=== PATIENT | male | born 1960 | race Caucasian/White ===

== ENCOUNTER 2017-01-27 11:14 | Emergency (ER) | payer OTHER ==
[~2017-01-27] VITALS: Ht 172.7 cm; Wt 94.4 kg
[2017-01-27 14:00] LABS: BASO # 0.1 10^3/uL (0.0-0.2); BASO % 0.6 % (0.0-1.0); EOS # 0.2 10^3/uL (0.0-0.50); EOS % 2.3 % (0.0-3.0); IMMATURE GRANULOCYTE % 0.7 % (0-0); LYMPH # 1.7 10^3/uL (1.5-4.5); LYMPH % 18.6 % (24.0-44.0); MEAN CORPUSCULAR HEMOGLOBIN 31.3 pg (27.0-33.0); MEAN CORPUSCULAR HGB CONC 33.1 g/dl (32.0-36.5); MEAN CORPUSCULAR VOLUME 94.6 fl (80.0-96.0); MONO % 10.7 % (0.0-5.0); NEUTROPHILS % 67.1 % (36.0-66.0); PLATELET COUNT, AUTOMATED 258 10^3/uL (150-450); RED CELL DISTRIBUTION WIDTH 14.1 % (11.5-14.5); WHITE BLOOD COUNT 8.9 10^3/uL (4.0-10.0)
--- NOTE | 2017-01-27 14:27 | REP ---
Chest two views HISTORY: pedal edema Comparison: None The lungs are clear. The heart is normal in size. The pulmonary vasculature is normal in appearance. The bony structure is intact. IMPRESSION: No acute disease. Signed by Nilton Adler MD 01/27/2017 02:18 P
[2017-01-27 14:28] LABS: ALBUMIN 3.7 GM/DL (3.2-5.2); ALBUMIN/GLOBULIN RATIO 0.97 (1.00-1.93); ALKALINE PHOSPHATASE 90 U/L (45-117); ALT/SGPT 30 U/L (12-78); ANION GAP 6 MEQ/L (8-16); AST/SGOT 11 U/L (7-37); BILIRUBIN,TOTAL 0.2 MG/DL (0.2-1.0); BLOOD UREA NITROGEN 26 MG/DL (7-18); CALCIUM LEVEL 9.3 MG/DL (8.5-10.1); CARBON DIOXIDE LEVEL 27 MEQ/L (21-32); CHLORIDE LEVEL 107 MEQ/L (98-107); CREATININE FOR GFR 1.11 MG/DL (0.70-1.30); GLOMERULAR FILTRATION RATE > 60.0 (>56); GLUCOSE, FASTING 101 MG/DL (70-105); POTASSIUM SERUM 4.5 MEQ/L (3.5-5.1); SODIUM LEVEL 140 MEQ/L (136-145); TOTAL PROTEIN 7.5 GM/DL (6.4-8.2)
[2017-01-27] MEDS ORDERED: HYDR25TAB PO (15:29)
[2017-01-27] MEDS ORDERED: KEFL500C17 PO (15:30)
[2017-01-27 15:41] VITALS: BP 157/91
--- NOTE | 2017-01-28 08:09 | ECGEPIP ---
Stationary ECG Study [facility] - ED Test Date: 2017-01-27 Pat Name: ARMOND MAGANA Department: Room: - Gender: M Financial Sales Professional: usha : 1960 Requested By: Brenda Thomas Order Number: [id number] Reading MD: Kimber Arias Measurements Intervals [place] Rate: 91 P: 68 LA: 126 QRS: 63 QRSD: 85 T: 73 QT: 325 QTc: 401 Interpretive Statements SINUS RHYTHM NSTTW ABNORMALITY NO PRIOR FOR COMPARISON Electronically Signed On 01-28-2017 8:09:21 EST by Kimber Arias
== END 2017-01-27 15:45 | disposition home or self-care (01) ==
LOC: M ED 11:14
DX: R60.0 Localized edema (principal); R06.02 Shortness of breath; I10 Essential (primary) hypertension; Z72.0 Tobacco use

== ENCOUNTER → 2017-02-26 | Outpatient (REF) | payer OTHER, MEDICAID ==
[2017-02-26 14:07] LABS: ALBUMIN 3.9 GM/DL (3.2-5.2); ALBUMIN/GLOBULIN RATIO 1.22 (1.00-1.93); ALKALINE PHOSPHATASE 105 U/L (45-117); ALT/SGPT 26 U/L (12-78); ANION GAP 6 MEQ/L (8-16); AST/SGOT 15 U/L (7-37); BILIRUBIN,TOTAL 0.2 MG/DL (0.2-1.0); BLOOD UREA NITROGEN 21 MG/DL (7-18); CALCIUM LEVEL 8.7 MG/DL (8.5-10.1); CARBON DIOXIDE LEVEL 30 MEQ/L (21-32); CHLORIDE LEVEL 101 MEQ/L (98-107); CREATININE FOR GFR 1.11 MG/DL (0.70-1.30); GLOMERULAR FILTRATION RATE > 60.0 (>56); GLUCOSE, FASTING 132 MG/DL (70-105); POTASSIUM SERUM 4.5 MEQ/L (3.5-5.1); SODIUM LEVEL 137 MEQ/L (136-145); TOTAL PROTEIN 7.1 GM/DL (6.4-8.2)
== END ==
LOC: M LAB REF 13:09
DX: R06.02 Shortness of breath (principal); R60.0 Localized edema; I10 Essential (primary) hypertension
CPT/HCPCS: 83880

== ENCOUNTER → 2017-05-14 | Outpatient (REF) | payer OTHER, MEDICAID ==
[2017-05-14 19:16] LABS: ALBUMIN 3.8 GM/DL (3.2-5.2); ALBUMIN/GLOBULIN RATIO 1.27 (1.00-1.93); ALKALINE PHOSPHATASE 116 U/L (45-117); ALT/SGPT 33 U/L (12-78); ANION GAP 10 MEQ/L (8-16); AST/SGOT 17 U/L (7-37); BILIRUBIN,TOTAL 0.2 MG/DL (0.2-1.0); BLOOD UREA NITROGEN 35 MG/DL (7-18); CARBON DIOXIDE LEVEL 27 MEQ/L (21-32); CHLORIDE LEVEL 99 MEQ/L (98-107); GLOMERULAR FILTRATION RATE > 60.0 (>56); GLUCOSE, FASTING 181 MG/DL (70-100); POTASSIUM SERUM 3.7 MEQ/L (3.5-5.1); SODIUM LEVEL 136 MEQ/L (136-145); TOTAL PROTEIN 6.8 GM/DL (6.4-8.2)
== END ==
LOC: M LAB REF 17:34
DX: I10 Essential (primary) hypertension (principal)

== ENCOUNTER → 2017-09-30 | Outpatient (CLI) | payer OTHER | LOC: M CARPUL 10:07 | DX: R06.02 Shortness of breath (principal) | CPT/HCPCS: 94060 ==

== ENCOUNTER → 2018-01-29 | Outpatient (CLI) | payer OTHER | LOC: M SLEEP HO 11:19 | DX: G47.30 Sleep apnea, unspecified (principal) | CPT/HCPCS: G0399 ==

== ENCOUNTER → 2018-03-23 | Outpatient (CLI) | payer OTHER ==
[~2018-03-23] MED LIST: HYDR25TAB PO; KEFL500C17 PO
--- NOTE | 2018-04-16 17:48 | SLEEPCENT ---
DATE OF PROCEDURE: 03/23/2018 REFERRING PROVIDER: Ms. Deisy Carey INTERPRETATION: Nocturnal polysomnography was performed for the determination of pressure therapy in this patient with a home sleep test that was suggestive of at least mild obstructive sleep apnea with an respiratory event index (AUSTIN) of 12.3. He also had oxygen desaturations with a willie of 70%. Of the events, there were obstructive but also central apneas. Finally, there was a time period when the oximetry was not recording, so no hypopneas could be scored and his index is likely higher. Symptoms included excessive daytime sleepiness, insomnia, snoring, gasping respirations, nonrestorative sleep. A total of 6 hours and 35 minutes of data was reviewed for the entire titration with 294.5 minutes of sleep identified. Sleep latency was 14 minutes. Rapid eye movement (REM) latency was 72 minutes. No slow wave sleep was identified. Sleep efficiency was 75.8%. EKG showed normal sinus rhythm with an average heart rate of 76 beats per minute. Speeding and slowing was noted surrounding some respiratory events. No epileptiform discharge observed. The patient had been fit with a ResMed AirFit F20 full face mask of medium size, 4 cm of water pressure supplied to the circuit and the lights were dimmed. Continuous positive airway pressure (CPAP) begun at 4 cm of water pressure was taken to a high of 13 cm of water pressure. However, he appeared to do best on 10 cm of water pressure. On this pressure, his apnea-hypopnea index (AHI) was 0, as was his respiratory arousal index (GILL). Oxygen saturation willie was in the high 80s. Periodic limb movement index was 16.7. Supine REM sleep was seen on this pressure with a reasonably good wave form. IMPRESSION: 1. Obstructive sleep apnea, at least mild, reasonably palliated on CPAP at 10 cm of water pressure including supine REM sleep. 2. Periodic limb movements, mild. RECOMMENDATIONS: Recommend continuation of CPAP therapy at the above pressure via a medium ResMed AirFit F20 full face mask or mask of his preference. After the patient is tolerating CPAP, I recommend overnight oximetry to ensure eradication of nocturnal hypoxemia. MTDD
== END ==
LOC: M SLEEP 19:09
PROVIDERS: ATTEND Internal Medicine Pulmonary Disease
DX: G47.33 Obstructive sleep apnea (adult) (pediatric) (principal)

== ENCOUNTER → 2018-05-10 | Outpatient (REF) | payer OTHER ==
[2018-05-10 13:36] LABS: BASO # 0.1 10^3/uL (0.0-0.2); BASO % 0.9 % (0.0-1.0); EOS # 0.2 10^3/uL (0.0-0.50); HEMATOCRIT 47.5 % (42.0-52.0); HEMOGLOBIN 15.8 g/dl (13.5-17.5); LYMPH # 1.4 10^3/uL (1.5-4.5); LYMPH % 17.5 % (24.0-44.0); MEAN CORPUSCULAR HEMOGLOBIN 30.9 pg (27.0-33.0); MEAN CORPUSCULAR HGB CONC 33.3 g/dl (32.0-36.5); MONO # 0.7 10^3/uL (0.0-0.8); MONO % 8.2 % (0.0-5.0); NEUTROPHILS # 5.7 10^3/uL (1.8-7.7); NEUTROPHILS % 70.8 % (36.0-66.0); PLATELET COUNT, AUTOMATED 179 10^3/uL (150-450); RED BLOOD COUNT 5.11 10^6/uL (4.30-6.10)
[2018-05-10 15:18] LABS: ALBUMIN 3.8 GM/DL (3.2-5.2); ALT/SGPT 30 U/L (12-78); BILIRUBIN,TOTAL 0.4 MG/DL (0.2-1.0); BLOOD UREA NITROGEN 18 MG/DL (7-18); CALCIUM LEVEL 8.4 MG/DL (8.5-10.1); CARBON DIOXIDE LEVEL 23 MEQ/L (21-32); CHLORIDE LEVEL 107 MEQ/L (98-107); CHOLESTEROL LEVEL 184 MG/DL (<200); CHOLESTEROL RISK RATIO 5.111 (<5); CREATININE FOR GFR 1.12 MG/DL (0.70-1.30); GLOMERULAR FILTRATION RATE > 60.0 (>56); GLUCOSE, FASTING 123 MG/DL (70-100); HDL CHOLESTEROL 36 MG/DL (>40); LDL CHOLESTEROL 122 MG/DL (<100); NON-HDL-C 148 MG/DL; POTASSIUM SERUM 4.5 MEQ/L (3.5-5.1); SODIUM LEVEL 139 MEQ/L (136-145); TOTAL 25(OH) VITAMIN D 8.7 NG/ML (30.0-100.0); TOTAL PROTEIN 6.9 GM/DL (6.4-8.2); TRIGLYCERIDES LEVEL 129 MG/DL (<150)
[2018-05-10 15:45] LABS: HEMOGLOBIN A1c 6.1 %
== END ==
LOC: M LAB REF 12:36
PROVIDERS: ATTEND Nurse Practitioner Adult Health
DX: Z13.9 Encounter for screening, unspecified (principal)

== ENCOUNTER → 2018-08-17 | Outpatient (REF) | payer OTHER ==
[2018-08-17 20:11] LABS: ALBUMIN 3.5 GM/DL (3.2-5.2); ALT/SGPT 39 U/L (12-78); BILIRUBIN,TOTAL 0.3 MG/DL (0.2-1.0); BLOOD UREA NITROGEN 21 MG/DL (7-18); CALCIUM LEVEL 8.9 MG/DL (8.5-10.1); CARBON DIOXIDE LEVEL 26 MEQ/L (21-32); CHLORIDE LEVEL 103 MEQ/L (98-107); CREATININE FOR GFR 0.96 MG/DL (0.70-1.30); GLOMERULAR FILTRATION RATE > 60.0 (>56); GLUCOSE, FASTING 142 MG/DL (70-100); NT-PRO BNP 21 PG/ML (<125); POTASSIUM SERUM 4.4 MEQ/L (3.5-5.1); SODIUM LEVEL 136 MEQ/L (136-145); TOTAL PROTEIN 6.9 GM/DL (6.4-8.2)
[2018-08-17 20:20] LABS: HEMOGLOBIN A1c 6.5 %
== END ==
LOC: M LAB REF 19:04
PROVIDERS: ATTEND Nurse Practitioner Adult Health
DX: R73.03 Prediabetes (principal); E78.5 Hyperlipidemia, unspecified; R06.02 Shortness of breath; I10 Essential (primary) hypertension

== ENCOUNTER → 2018-08-23 | Outpatient (CLI) | payer OTHER ==
--- NOTE | 2018-08-24 09:24 | ECHO ---
DATE OF PROCEDURE: 08/23/2018 REFERRING PHYSICIAN: Deisy Carey NP INDICATION: Dyspnea. HEIGHT: 172 cm WEIGHT: 99 kg. 2D MEASUREMENTS: Ventricular septum - 1.01 cm Posterior wall - 0.92 cm Left ventricle diastole - 4.9 cm Left atrium - 3.4 cm Aortic root - 2.9 cm Left atrial volume index - 14 Inferior vena cava - 2.2 cm DOPPLER MEASUREMENTS: Aortic valve velocity - 165 cm/s LVOT velocity 117 cm/s LVOT VTI - 22.0 cm Mitral E velocity 87. 3 cm/s Mitral A velocity 60.1 cm/s Trace tricuspid regurgitation Pulmonary artery systolic pressure 49 mmHg. MITRAL ANNULAR TISSUE DOPPLER: E prime lateral 4.4 cm/s E prime septal 9.8 cm/s CONCLUSIONS: 1. Moderate elevation of the pulmonary artery systolic pressure. Right ventricle hypertrophy with normal RV systolic function. 2. Normal left ventricle internal dimensions and wall thickness. Normal regional LV wall motion and wall thickening. Normal LV diastolic function. LVEF 65% by visual estimate. Normal left atrial size. 3. Inferior vena cava plethora suggestive of elevated central venous pressure. 4. Moderately technical difficult echocardiogram.
== END ==
LOC: M CARPUL 10:15
PROVIDERS: ATTEND Nurse Practitioner Adult Health
DX: R03.0 Elevated blood-pressure reading, without diagnosis of hypertension (principal)

== ENCOUNTER → 2018-10-09 | Outpatient (CLI) | payer OTHER ==
--- NOTE | 2018-10-11 19:22 | REP ---
MRI LUMBAR SPINE WITHOUT CONTRAST: REASON: Other spondylosis, lumbar region. COMPARISON: None. TECHNIQUE: MRI of the lumbar spine was performed utilizing axial T1 and T2 and saggital STIR, T1 and T2 weighted images without contrast. FINDINGS: There is straightening of lumbar lordosis which could be positional or related to muscle spasm. Vertebral body heights are maintained. There is loss of disc height at L4-L5 with disc desiccation and vacuum phenomenon. There is minimal disc desiccation at L3-L4. There is essentially single level degenerative changes at L4-L5 which include fatty and edematous endplate marrow changes and right greater than left facet arthropathy. The visualized spinal cord is unremarkable. The conus medullaris terminates at L1-L2. The paraspinal muscles are within normal limits. LEVEL SPECIFIC OBSERVATIONS: L1-L2, L2-L3: No significant spinal canal stenosis or neural foraminal narrowing. L3-L4: Minimal disc bulge without spinal canal stenosis or neural foraminal narrowing. L4-L5: Diffuse disc bulge, eccentric to the right. Bilateral facet arthropathy, moderate on the right. Right neural foraminal narrowing, at least moderate. Partial effacement of the ventral thecal sac. No significant spinal canal stenosis. L5-S1: No significant spinal canal stenosis or neural foraminal narrowing. IMPRESSION: 1. L4-L5 lumbar spondylosis with moderate right neural foraminal narrowing. No significant spinal canal stenosis. 2. Remaining lumbar levels are without significant spinal canal stenosis or neural foraminal compromise. Electronically Signed by Gregorio Morrissey MD 10/13/2018 08:40 A
== END ==
LOC: M RAD 09:29
PROVIDERS: ATTEND Orthopaedic Surgery
DX: M43.06 Spondylolysis, lumbar region (principal)

== ENCOUNTER → 2018-10-12 | Outpatient (CLI) | payer OTHER ==
--- NOTE | 2018-10-12 16:00 | REP ---
REASON: Tobacco abuse. PRIORS: None. As per the protocol only lung window images were sent to the read station for interpretation. Numerable pleural blebs are seen in the lung apical regions right greater than left. There are no abnormal nodules, masses, or opacities. Limited evaluation of the mediastinum and pulmonary blu show no gross abnormalities. Limited evaluation of the imaged upper and imaged osseous structures show no gross abnormalities. IMPRESSION: Lung-RADS category 1. No abnormal nodule. Emphysematous changes as described above. Electronically Signed by Jose Funk DO 10/12/2018 05:10 P
== END ==
LOC: M RAD 10:16
PROVIDERS: ATTEND Internal Medicine Pulmonary Disease
DX: Z12.2 Encounter for screening for malignant neoplasm of respiratory organs (principal); Z87.891 Personal history of nicotine dependence

== ENCOUNTER → 2018-11-16 | Outpatient (REF) | payer OTHER ==
[2018-11-16 14:43] LABS: ALBUMIN 3.7 GM/DL (3.2-5.2); ALT/SGPT 39 U/L (12-78); BILIRUBIN,TOTAL 0.4 MG/DL (0.2-1.0); BLOOD UREA NITROGEN 23 MG/DL (7-18); CALCIUM LEVEL 9.6 MG/DL (8.5-10.1); CARBON DIOXIDE LEVEL 26 MEQ/L (21-32); CHLORIDE LEVEL 105 MEQ/L (98-107); CREATININE FOR GFR 1.02 MG/DL (0.70-1.30); GLOMERULAR FILTRATION RATE > 60.0 (>56); GLUCOSE, FASTING 107 MG/DL (70-100); POTASSIUM SERUM 4.5 MEQ/L (3.5-5.1); SODIUM LEVEL 139 MEQ/L (136-145); TOTAL PROTEIN 6.9 GM/DL (6.4-8.2)
[2018-11-16 14:57] LABS: HEMOGLOBIN A1c 6.6 %
== END ==
LOC: M LAB REF 14:14
PROVIDERS: ATTEND Nurse Practitioner Adult Health
DX: Z13.9 Encounter for screening, unspecified (principal); R73.03 Prediabetes

== ENCOUNTER → 2019-02-14 | Outpatient (REF) | payer OTHER ==
[2019-02-14 20:14] LABS: HEMOGLOBIN A1c 6.9 %
== END ==
LOC: M LAB REF 18:54
PROVIDERS: ATTEND Nurse Practitioner Adult Health
DX: E11.9 Type 2 diabetes mellitus without complications (principal)

== ENCOUNTER → 2019-05-18 | Outpatient (REF) | payer OTHER ==
[2019-05-18 17:03] LABS: BASO # 0.1 10^3/uL (0.0-0.2); BASO % 0.7 % (0.0-1.0); EOS # 0.3 10^3/uL (0.0-0.5); EOS % 2.9 % (0.0-3.0); HEMATOCRIT 51.1 % (42.0-52.0); HEMOGLOBIN 16.6 g/dl (13.5-17.5); LYMPH # 2.6 10^3/uL (1.5-5.0); LYMPH % 26.9 % (24.0-44.0); MEAN CORPUSCULAR HEMOGLOBIN 31.1 pg (27.0-33.0); MEAN CORPUSCULAR HGB CONC 32.5 g/dl (32.0-36.5); MEAN CORPUSCULAR VOLUME 95.7 fl (80.0-96.0); MONO # 0.7 10^3/uL (0.0-0.8); MONO % 7.1 % (0.0-5.0); NEUTROPHILS # 5.8 10^3/uL (1.5-8.5); NEUTROPHILS % 61.1 % (36.0-66.0); PLATELET COUNT, AUTOMATED 219 10^3/uL (150-450); RED BLOOD COUNT 5.34 10^6/uL (4.30-6.10); WHITE BLOOD COUNT 9.5 10^3/uL (4.0-10.0)
[2019-05-18 17:11] LABS: ALT/SGPT 48 U/L (12-78); BILIRUBIN,TOTAL 0.2 MG/DL (0.2-1.0); BLOOD UREA NITROGEN 19 MG/DL (7-18); CALCIUM LEVEL 9.4 MG/DL (8.5-10.1); CARBON DIOXIDE LEVEL 30 MEQ/L (21-32); CHLORIDE LEVEL 103 MEQ/L (98-107); CREATININE FOR GFR 0.95 MG/DL (0.70-1.30); GLOMERULAR FILTRATION RATE > 60.0 (>56); GLUCOSE, FASTING 95 MG/DL (70-100); POTASSIUM SERUM 4.5 MEQ/L (3.5-5.1); SODIUM LEVEL 137 MEQ/L (136-145); TOTAL PROTEIN 7.3 GM/DL (6.4-8.2)
[2019-05-18 17:12] LABS: HEMOGLOBIN A1c 6.7 %
== END ==
LOC: M LAB REF 16:21
PROVIDERS: ATTEND Nurse Practitioner Adult Health
DX: Z13.9 Encounter for screening, unspecified (principal)

== ENCOUNTER → 2019-08-17 | Outpatient (CLI) | payer OTHER ==
[~2019-08-17] MED LIST changes: +HYDR-3490 PO; -HYDR25TAB PO
--- NOTE | 2019-08-17 16:17 | REP ---
DEEP VENOUS ULTRASONOGRAPHY RIGHT THIGH, RULE OUT DVT: REASON: Pain and swelling. TECHNIQUE: Multiple ultrasonographic images of the deep venous structures of the right thigh were obtained from the common femoral vein to the popliteal vein along with Doppler interrogation and color flow Doppler images. FINDINGS: There is no abnormal echogenic material seen within any of the visualized deep venous structures that would suggest acute thrombosis. Coaptation is unremarkable throughout. Doppler interrogation shows an expected response to respiratory variability and augmentation. The color flow images show what appears to be a normal vascular pattern throughout. IMPRESSION: There is no ultrasonographic evidence of deep venous thrombosis involving any of the visualized deep venous structures of the right thigh, as described above.
== END ==
LOC: M WHC 14:40
PROVIDERS: ATTEND Nurse Practitioner Adult Health
DX: R60.0 Localized edema (principal)

== ENCOUNTER → 2019-08-17 | Outpatient (REF) | payer OTHER, MEDICAID ==
[~2019-08-17] MED LIST changes: -HYDR-3490 PO; +HYDR25TAB PO
[2019-08-17 15:20] LABS: HEMOGLOBIN A1c 7.1 %
[2019-08-17 15:28] LABS: ALBUMIN 3.8 GM/DL (3.2-5.2); ALT/SGPT 45 U/L (12-78); BILIRUBIN,TOTAL 0.2 MG/DL (0.2-1.0); BLOOD UREA NITROGEN 22 MG/DL (7-18); CALCIUM LEVEL 9.1 MG/DL (8.5-10.1); CARBON DIOXIDE LEVEL 27 MEQ/L (21-32); CHLORIDE LEVEL 106 MEQ/L (98-107); CREATININE FOR GFR 0.99 MG/DL (0.70-1.30); GLOMERULAR FILTRATION RATE > 60.0 (>56); GLUCOSE, FASTING 96 MG/DL (70-100); POTASSIUM SERUM 4.5 MEQ/L (3.5-5.1); SODIUM LEVEL 138 MEQ/L (136-145); TOTAL PROTEIN 7.1 GM/DL (6.4-8.2)
== END ==
LOC: M LAB REF 14:37
PROVIDERS: ATTEND Nurse Practitioner Adult Health
DX: R60.0 Localized edema (principal)

== ENCOUNTER → 2019-12-02 | Outpatient (CLI) | payer OTHER ==
--- NOTE | 2019-12-12 16:53 | REP ---
CT CHEST WITHOUT CONTRAST: LOW DOSE SCREENING EXAMIN HISTORY: Personal history of nicotine dependence. COMPARISON: CT chest screening study 10/12/2018. 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 There are emphysematous and bullous changes in the apices bilaterally unchanged. No infiltrate or lung mass lesion has developed. No significant pulmonary nodule is appreciated. Mild vascular calcification is again seen. IMPRESSION: Lung-RADS Category 1 stable findings. Repeat screening exam suggested in one year. MTDD
== END ==
LOC: M RAD 13:30
PROVIDERS: ATTEND Nurse Practitioner Family
DX: Z12.2 Encounter for screening for malignant neoplasm of respiratory organs (principal); Z87.891 Personal history of nicotine dependence

== ENCOUNTER → 2020-04-04 | Outpatient (REF) | payer OTHER ==
[~2020-04-04] MED LIST changes: +HYDR-3490 PO; -HYDR25TAB PO
[2020-04-04 18:14] LABS: CHOLESTEROL RISK RATIO 5.358 (<5)
[2020-04-04 20:10] LABS: HEMOGLOBIN A1c 6.4 %
== END ==
LOC: M LAB REF 17:24
PROVIDERS: ATTEND Nurse Practitioner Adult Health
DX: E11.9 Type 2 diabetes mellitus without complications (principal); E78.5 Hyperlipidemia, unspecified

== ENCOUNTER → 2020-12-19 | Outpatient (CLI) | payer MEDICARE, OTHER ==
--- NOTE | 2020-12-19 15:21 | REP ---
INDICATION: LUNG CANCER SCREENING. COMPARISON: Multiple the latest 12/02/2019 TECHNIQUE: Axial noncontrast images from the thoracic inlet to the upper abdomen using low-dose lung screening technique (LDCT). As per the protocol only lung window images were sent to the read station for interpretation. FINDINGS: There is biapical pleuroparenchymal scarring status quo. There are biapical pleural blebs status quo. No new abnormal nodules, masses, or opacities have developed. Grossly, the mediastinum and pulmonary blu are unchanged. Grossly, the imaged upper abdomen and imaged osseous structures are unchanged. IMPRESSION: No change from the prior exam. No abnormal nodules. Stable appearing chronic lung field changes. Lung rads category 1 <Electronically signed by Jose Funk > 12/19/20 [id number]
== END ==
LOC: M RAD 13:48
PROVIDERS: ATTEND Pediatrics
DX: Z12.2 Encounter for screening for malignant neoplasm of respiratory organs (principal); J98.4 Other disorders of lung; J43.9 Emphysema, unspecified

== ENCOUNTER → 2021-04-17 | Outpatient (CLI) | payer OTHER | LOC: M RAD 17:56 | PROVIDERS: ATTEND Nurse Practitioner Family | DX: R91.8 Other nonspecific abnormal finding of lung field (principal); J43.2 Centrilobular emphysema ==

== ENCOUNTER 2021-07-20 15:00 | Emergency (ER) | payer OTHER ==
[~2021-07-20] VITALS: Ht 165.1 cm; Wt 103.4 kg
[2021-07-20] MEDS ORDERED: LISI20TA33 (15:14)
[2021-07-20] MEDS ORDERED: ALBU8.5H (15:14)
[2021-07-20] MEDS ORDERED: CETI-24 (15:14)
[2021-07-20] MEDS ORDERED: INCR1INH (15:14)
[2021-07-20] MEDS ORDERED: ATOR40TA75 (15:14)
[2021-07-20] MEDS ORDERED: METF500T13 (15:14)
[2021-07-20] MEDS ORDERED: FURO20TA2 (15:14)
[2021-07-20] MEDS ORDERED: MONT10TA97 (15:14)
[2021-07-20] MEDS ORDERED: ALBU83IN (15:14)
[2021-07-20] MEDS ORDERED: ACETAMINOPHEN 325 MG TAB PO ONE (16:20)
[2021-07-20] MEDS ORDERED: methocarbamoL 500 MG TAB PO ONE (17:40)
[2021-07-20] MEDS ORDERED: METH-1164 PO (17:41)
[2021-07-20] MEDS ORDERED: LIDOCAINE 5% (LIDODERM) PATCH TD ONE (17:45)
[2021-07-20 17:49] VITALS: BP 122/74
[2021-07-20] MEDS ORDERED: **NOTE PATIENT COMMENT** MISC XX SCH (21:00)
== END 2021-07-20 17:51 | disposition home or self-care (01) ==
LOC: M ED 15:00
DX: R51.9 Headache, unspecified (principal); M54.2 Cervicalgia; M25.519 Pain in unspecified shoulder; M51.9 Unspecified thoracic, thoracolumbar and lumbosacral intervertebral disc disorder; E11.9 Type 2 diabetes mellitus without complications; I10 Essential (primary) hypertension; J44.9 Chronic obstructive pulmonary disease, unspecified; E78.5 Hyperlipidemia, unspecified; M50.30 Other cervical disc degeneration, unspecified cervical region

== ENCOUNTER → 2021-08-07 | Outpatient (CLI) | payer OTHER ==
[~2021-08-07] MED LIST changes: +ALBU2.5V10; +ALBU8.5H; +ATOR40TA75; +CETI-24; +FURO20TA2; +INCR1INH; +LISI20TA33; +METF500T13; +METH-1164 PO; +MONT10TA97
== END ==
LOC: M CARPUL 10:55
PROVIDERS: ATTEND Pediatrics
DX: I27.20 Pulmonary hypertension, unspecified (principal); I36.1 Nonrheumatic tricuspid (valve) insufficiency; I31.3 Pericardial effusion (noninflammatory)

== ENCOUNTER → 2021-11-05 | Outpatient (CLI) | payer OTHER | LOC: M RAD 13:47 | PROVIDERS: ATTEND Pediatrics | DX: I73.9 Peripheral vascular disease, unspecified (principal) ==

== ENCOUNTER → 2021-12-12 | Outpatient (CLI) | payer OTHER | LOC: M PLARAD 09:06 | PROVIDERS: ATTEND Physician Assistant | DX: S43.491D Other sprain of right shoulder joint, subsequent encounter (principal); M54.12 Radiculopathy, cervical region; M25.78 Osteophyte, vertebrae; M48.02 Spinal stenosis, cervical region ==

== ENCOUNTER → 2022-04-18 | Outpatient (CLI) | payer MEDICARE, OTHER, SELFPAY | LOC: M RAD 14:49 | PROVIDERS: ATTEND Nurse Practitioner Family | DX: Z12.2 Encounter for screening for malignant neoplasm of respiratory organs (principal); Z87.891 Personal history of nicotine dependence; J43.9 Emphysema, unspecified ==

== ENCOUNTER → 2022-05-05 | Outpatient (REF) | payer MEDICARE, OTHER ==
[2022-05-05 17:44] LABS: BLOOD UREA NITROGEN 23 MG/DL (9-23); CALCIUM LEVEL 9.6 MG/DL (8.5-10.1); CARBON DIOXIDE LEVEL 31 MMOL/L (20-31); CHLORIDE LEVEL 101 MMOL/L (98-107); CREATININE FOR GFR 0.88 MG/DL (0.70-1.30); GLOMERULAR FILTRATION RATE > 60.0 (>56); GLUCOSE, FASTING 100 MG/DL (60-100); POTASSIUM SERUM 4.7 MMOL/L (3.5-5.1); SODIUM LEVEL 138 MMOL/L (136-145)
== END ==
LOC: M LAB REF 16:27
PROVIDERS: ATTEND Pediatrics
DX: Z01.818 Encounter for other preprocedural examination (principal)

== ENCOUNTER 2022-05-14 10:39 | Inpatient (IN) | payer MEDICARE, OTHER ==
[~2022-05-14] VITALS: Ht 172.7 cm; Wt 86.9 kg
[2022-05-14] VITALS (16 sets, daily range): BP systolic 118–139; BP diastolic 56–69
[~2022-05-14 10:39] MED LIST changes: -FURO20TA2; +FURO20TA2 PO; -INCR1INH; +INCR1INH INH; -LISI20TA33; +LISI20TA33 PO; -MONT10TA97; +MONT10TA97 PO
[2022-05-14 12:36] LABS: BASO # 0.1 10^3/uL (0.0-0.2); BASO % 0.4 % (0.0-1.0); EOS % 0.2 % (0.0-3.0); HEMATOCRIT 49.2 % (42.0-52.0); HEMOGLOBIN 15.9 g/dl (13.5-17.5); LYMPH # 1.8 10^3/uL (1.5-5.0); LYMPH % 11.2 % (24.0-44.0); MEAN CORPUSCULAR HEMOGLOBIN 30.9 pg (27.0-33.0); MEAN CORPUSCULAR HGB CONC 32.3 g/dl (32.0-36.5); MEAN CORPUSCULAR VOLUME 95.7 fl (80.0-96.0); MONO # 1.5 10^3/uL (0.0-0.8); MONO % 8.9 % (2.0-8.0); NEUTROPHILS # 12.8 10^3/uL (1.5-8.5); NEUTROPHILS % 78.6 % (36.0-66.0); PLATELET COUNT, AUTOMATED 198 10^3/uL (150-450); RED BLOOD COUNT 5.14 10^6/uL (4.30-6.10); WHITE BLOOD COUNT 16.2 10^3/uL (4.0-10.0)
[2022-05-14] MEDS ORDERED: IPRATROPIUM 0.5MG/ALBUTEROL 2.5MG INH SOL UD 3ML (DUONEB) NEB ONE ×2 (12:40→13:30)
[2022-05-14] MEDS ORDERED: AMPICILLIN SOD/SULBACTAM SOD 3 GM in D5W MINI-BAG PLUS 100 ML IV ONE (12:45)
[2022-05-14] MEDS ORDERED: NS 500 ML IV ONE (12:50)
[2022-05-14] MEDS ORDERED: ISOVUE-370 76% 100ML VIAL As Ordered ONE (12:56)
[2022-05-14 13:08] LABS: ABG BASE EXCESS 2.4 (-2.0-2.0); ABG HCO3 27.1 MEQ/L (22.0-26.0); ABG O2 SATURATION 91.9 % (95.0-99.0); ABG PARTIAL PRESSURE CO2 42.1 mmHg (35.0-45.0); ABG PARTIAL PRESSURE O2 57.9 mmHg (75.0-100.0); ABG STANDARD HCO3 26.4 MEQ/L (22.0-26.0); ABG TOTAL CO2 28.4 MEQ/L (22.0-29.0); ABG pH (ARTERIAL) 7.426 UNITS (7.350-7.450)
[2022-05-14 13:27] LABS: ALBUMIN 3.9 G/DL (3.2-5.2); ALKALINE PHOSPHATASE 92 U/L (46-116); ALT/SGPT 34 U/L (7.0-40); AST/SGOT 23 U/L (<34); BILIRUBIN,DIRECT 0.3 MG/DL (<0.4); BILIRUBIN,TOTAL 1.2 MG/DL (0.3-1.2); BLOOD UREA NITROGEN 25 MG/DL (9-23); CALCIUM LEVEL 9.2 MG/DL (8.5-10.1); CARBON DIOXIDE LEVEL 29 MMOL/L (20-31); CHLORIDE LEVEL 98 MMOL/L (98-107); CK-MB VALUE MASS 2.9 NG/ML (<3.6); CREATININE FOR GFR 0.87 MG/DL (0.70-1.30); GLOMERULAR FILTRATION RATE > 60.0 (>56); GLUCOSE, FASTING 149 MG/DL (60-100); POTASSIUM SERUM 4.8 MMOL/L (3.5-5.1); SODIUM LEVEL 134 MMOL/L (136-145); TOTAL PROTEIN 6.8 G/DL (5.7-8.2)
[2022-05-14 13:28] LABS: CPK CREATINE PHOSPHOKINASE 560 U/L (46-171); MB/CK RELATIVE INDEX 0.51 (< OR =4)
[2022-05-14] MEDS ORDERED: NEOSPORIN TOP OINT 15GM As Ordered ONE (13:59)
[2022-05-14] MEDS ORDERED: PHENYLEPHRINE 0.5% NASAL SPRAY 15 ML As Ordered ONE (13:59)
[2022-05-14] MEDS ORDERED: LIDOCAINE W/EPINEPHRINE 1% 20ML VIAL As Ordered ONE (13:59)
[2022-05-14] MEDS ORDERED: LIDOCAINE 1% SDV 30ML VIAL As Ordered ONE (13:59)
[2022-05-14] MEDS ORDERED: METHYLENE BLUE 0.5% (5MG/ML) 10 ML AMP (PROVAYBLUE) As Ordered ONE (13:59)
[2022-05-14] MEDS ORDERED: propofoL 200 MG/20 ML VIAL As Ordered ONE (14:07)
[2022-05-14] MEDS ORDERED: ROCURONIUM BROMIDE 50MG/5ML VIAL As Ordered ONE ×2 (14:07→15:34)
[2022-05-14] MEDS ORDERED: fentaNYL 100 MCG/2 ML INJECTION As Ordered ONE ×3 (14:07→15:37)
[2022-05-14] MEDS ORDERED: ONDANSETRON 4MG 2ML VIAL As Ordered ONE (14:07)
[2022-05-14] MEDS ORDERED: KETAMINE HCL 200MG/20ML VIAL As Ordered ONE (14:07)
[2022-05-14] MEDS ORDERED: LIDOCAINE 2% 100MG/5ML SDV (FOR ANES.) As Ordered ONE (14:07)
[2022-05-14] MEDS ORDERED: MIDAZOLAM INJ 2MG/2ML VIAL As Ordered ONE ×2 (14:07→17:23)
[2022-05-14] MEDS ORDERED: ETOMIDATE INJ 20MG/10ML VIAL As Ordered ONE (14:08)
[2022-05-14 14:10] LABS: RSV AMPLIFICATION NEGATIVE (NEGATIVE)
[2022-05-14] MEDS ORDERED: OXYMETAZOLINE 0.05% NASAL SPRAY (AFRIN) As Ordered ONE (14:20)
[2022-05-14] MEDS ORDERED: CETACAINE SPRAY 5GM As Ordered ONE (14:40)
[2022-05-14] MEDS ORDERED: PHENYLephrine 500MCG 5ML (100MCG/ML) SYRINGE As Ordered ONE (15:12)
[2022-05-14] MEDS ORDERED: SUCCINYLCHOLINE 100MG/5ML SYRINGE As Ordered ONE (15:12)
[2022-05-14] MEDS ORDERED: SUGAMMADEX SODIUM 500 MG/5 ML VIAL (BRIDION) As Ordered ONE (15:16)
[2022-05-14] MEDS ORDERED: ACETAMINOPHEN 1000MG 100ML IV BAG As Ordered ONE (15:26)
[2022-05-14] MEDS ORDERED: PROPOFOL 1,000 MG/100 ML VIAL As Ordered ONE (16:10)
[2022-05-14] MEDS: propofoL 1,000 MG in IV 1 EA IV SCH ×3 (17:03→23:55)
[2022-05-14] MEDS ORDERED: MIDAZOLAM 100MG/100ML-0.9%NACL 100 MG in IV 1 EA IV SCH (17:15)
[2022-05-14] MEDS ORDERED: DEXTROSE 50% 50ML SYRINGE IV PRN (17:25)
[2022-05-14] MEDS ORDERED: GLUCAGON INJ 1MG VIAL SC PRN (17:25)
[2022-05-14] MEDS ORDERED: GLUCOSE 4GM CHEW TABLET PO PRN (17:25)
[2022-05-14] MEDS ORDERED: MIDAZOLAM INJ 2MG/2ML VIAL IV STA (17:26)
[2022-05-14 17:41] LABS: ABG BASE EXCESS -2.2 (-2.0-2.0); ABG HCO3 27.2 MEQ/L (22.0-26.0); ABG O2 SATURATION 96.4 % (95.0-99.0); ABG PARTIAL PRESSURE O2 98.9 mmHg (75.0-100.0); ABG STANDARD HCO3 22.7 MEQ/L (22.0-26.0); ABG TOTAL CO2 29.3 MEQ/L (22.0-29.0)
[2022-05-14] MEDS: INSULIN LISPRO (NovoLOG) PER UNIT SC SCH (17:55)
[2022-05-14] MEDS: PANTOPRAZOLE 40MG VIAL IV SCH (17:56)
[2022-05-14 18:01] LABS: ABG PARTIAL PRESSURE CO2 66.7 mmHg (35.0-45.0); ABG pH (ARTERIAL) 7.229 UNITS (7.350-7.450)
[2022-05-14] MEDS: AMPICILLIN SOD/SULBACTAM SOD 3 GM in D5W MINI-BAG PLUS 100 ML IV SCH (18:31)
[2022-05-14] MEDS: IPRATROPIUM 0.5MG/ALBUTEROL 2.5MG INH SOL UD 3ML (DUONEB) NEB SCH (19:16)
[2022-05-14] MEDS: CHLORHEXIDINE GLUCONATE 0.12 % 15ML UDC (PERIDEX ORAL RINSE) MT SCH (20:05)
[2022-05-14] MEDS: methylPREDNISolone 125MG 2ML VIAL IV SCH (20:06)
[2022-05-14] MEDS: DOXYCYCLINE HYCLATE 100 MG in D5W MINI-BAG PLUS 100 ML IV SCH (20:06)
[2022-05-14] MEDS ORDERED: EZET10TA21 PO (21:17)
[2022-05-14] MEDS ORDERED: FLUT1INH3 INH (21:17)
[2022-05-14] MEDS ORDERED: ATOR80TA59 PO (21:17)
[2022-05-14] MEDS ORDERED: HOME MED LIST COMPLETE! XX SCH ×2 (21:20→21:25)
[2022-05-14] MEDS: fentaNYL 100 MCG/2 ML INJECTION IV PRN (21:56)
[2022-05-15] VITALS (43 sets, daily range): BP systolic 112–147; BP diastolic 55–69
[2022-05-15] MEDS: AMPICILLIN SOD/SULBACTAM SOD 3 GM in D5W MINI-BAG PLUS 100 ML IV SCH ×4 (00:21→18:00)
[2022-05-15] MEDS: INSULIN LISPRO (NovoLOG) PER UNIT SC SCH ×4 (00:28→17:57)
[2022-05-15] MEDS: fentaNYL 100 MCG/2 ML INJECTION IV PRN ×2 (01:16→08:15)
[2022-05-15] MEDS: propofoL 1,000 MG in IV 1 EA IV SCH ×6 (03:59→22:01)
[2022-05-15 04:52] LABS: HEMATOCRIT 45.2 % (42.0-52.0); HEMOGLOBIN 15.2 g/dl (13.5-17.5); MEAN CORPUSCULAR HEMOGLOBIN 31.9 pg (27.0-33.0); MEAN CORPUSCULAR HGB CONC 33.6 g/dl (32.0-36.5); PLATELET COUNT, AUTOMATED 179 10^3/uL (150-450); RED BLOOD COUNT 4.76 10^6/uL (4.30-6.10)
[2022-05-15 05:50] LABS: ABG BASE EXCESS 1.2 (-2.0-2.0); ABG HCO3 25.8 MEQ/L (22.0-26.0); ABG O2 SATURATION 95.7 % (95.0-99.0); ABG PARTIAL PRESSURE CO2 40.8 mmHg (35.0-45.0); ABG STANDARD HCO3 25.5 MEQ/L (22.0-26.0); ABG pH (ARTERIAL) 7.418 UNITS (7.350-7.450)
[2022-05-15] MEDS: methylPREDNISolone 125MG 2ML VIAL IV SCH ×3 (05:50→20:12)
[2022-05-15 05:51] LABS: ALBUMIN 3.1 G/DL (3.2-5.2); ALKALINE PHOSPHATASE 81 U/L (46-116); ALT/SGPT 25 U/L (7.0-40); AST/SGOT 14 U/L (<34); BILIRUBIN,TOTAL 0.6 MG/DL (0.3-1.2); BLOOD UREA NITROGEN 23 MG/DL (9-23); CALCIUM LEVEL 8.7 MG/DL (8.5-10.1); CARBON DIOXIDE LEVEL 28 MMOL/L (20-31); CHLORIDE LEVEL 99 MMOL/L (98-107); CREATININE FOR GFR 0.84 MG/DL (0.70-1.30); GLOMERULAR FILTRATION RATE > 60.0 (>56); GLUCOSE, FASTING 211 MG/DL (60-100); MAGNESIUM LEVEL 1.8 MG/DL (1.8-2.4); POTASSIUM SERUM 4.6 MMOL/L (3.5-5.1); SODIUM LEVEL 135 MMOL/L (136-145)
[2022-05-15] MEDS: IPRATROPIUM 0.5MG/ALBUTEROL 2.5MG INH SOL UD 3ML (DUONEB) NEB SCH ×4 (07:27→20:23)
[2022-05-15] MEDS: DOXYCYCLINE HYCLATE 100 MG in D5W MINI-BAG PLUS 100 ML IV SCH ×2 (07:52→19:19)
[2022-05-15] MEDS: CHLORHEXIDINE GLUCONATE 0.12 % 15ML UDC (PERIDEX ORAL RINSE) MT SCH ×2 (07:52→20:12)
[2022-05-15] MEDS: dexmedeTOMidine 200 MCG in IV 1 EA IV SCH ×5 (09:20→23:07)
[2022-05-15] MEDS ORDERED: ACETAMINOPHEN TAB 650MG DOSE (2X325MG) PO ONE (16:15)
[2022-05-15] MEDS: PANTOPRAZOLE 40MG VIAL IV SCH (17:56)
[2022-05-15] MEDS ORDERED: ACETAMINOPHEN TAB 650MG DOSE (2X325MG) PO PRN (18:25)
[2022-05-16] VITALS (26 sets, daily range): BP systolic 133–162; BP diastolic 62–75
[2022-05-16] MEDS: INSULIN LISPRO (NovoLOG) PER UNIT SC SCH ×5 (00:09→23:45)
[2022-05-16] MEDS: AMPICILLIN SOD/SULBACTAM SOD 3 GM in D5W MINI-BAG PLUS 100 ML IV SCH ×4 (00:09→18:09)
[2022-05-16] MEDS: dexmedeTOMidine 200 MCG in IV 1 EA IV SCH ×10 (00:55→23:56)
[2022-05-16] MEDS: propofoL 1,000 MG in IV 1 EA IV SCH ×7 (01:58→23:57)
[2022-05-16 04:50] LABS: BASO % 0.1 % (0.0-1.0); HEMATOCRIT 45.5 % (42.0-52.0); HEMOGLOBIN 15.1 g/dl (13.5-17.5); LYMPH # 0.7 10^3/uL (1.5-5.0); LYMPH % 4.6 % (24.0-44.0); MEAN CORPUSCULAR HEMOGLOBIN 31.4 pg (27.0-33.0); MEAN CORPUSCULAR HGB CONC 33.2 g/dl (32.0-36.5); MEAN CORPUSCULAR VOLUME 94.6 fl (80.0-96.0); MONO # 1.1 10^3/uL (0.0-0.8); NEUTROPHILS # 13.4 10^3/uL (1.5-8.5); NEUTROPHILS % 87.6 % (36.0-66.0); PLATELET COUNT, AUTOMATED 177 10^3/uL (150-450); RED BLOOD COUNT 4.81 10^6/uL (4.30-6.10); WHITE BLOOD COUNT 15.3 10^3/uL (4.0-10.0)
[2022-05-16] MEDS: methylPREDNISolone 125MG 2ML VIAL IV SCH ×3 (05:08→20:26)
[2022-05-16 05:14] LABS: BLOOD UREA NITROGEN 26 MG/DL (9-23); CALCIUM LEVEL 8.5 MG/DL (8.5-10.1); CARBON DIOXIDE LEVEL 27 MMOL/L (20-31); CHLORIDE LEVEL 101 MMOL/L (98-107); GLOMERULAR FILTRATION RATE > 60.0 (>56); GLUCOSE, FASTING 300 MG/DL (60-100); POTASSIUM SERUM 4.7 MMOL/L (3.5-5.1); SODIUM LEVEL 135 MMOL/L (136-145)
[2022-05-16 06:11] LABS: ABG BASE EXCESS 1.3 (-2.0-2.0); ABG HCO3 25.9 MEQ/L (22.0-26.0); ABG O2 SATURATION 97.3 % (95.0-99.0); ABG PARTIAL PRESSURE CO2 41.2 mmHg (35.0-45.0); ABG PARTIAL PRESSURE O2 94.1 mmHg (75.0-100.0); ABG STANDARD HCO3 25.6 MEQ/L (22.0-26.0); ABG TOTAL CO2 27.2 MEQ/L (22.0-29.0); ABG pH (ARTERIAL) 7.417 UNITS (7.350-7.450)
[2022-05-16] MEDS: IPRATROPIUM 0.5MG/ALBUTEROL 2.5MG INH SOL UD 3ML (DUONEB) NEB SCH ×4 (07:55→19:27)
[2022-05-16] MEDS: DOXYCYCLINE HYCLATE 100 MG in D5W MINI-BAG PLUS 100 ML IV SCH ×2 (08:03→20:26)
[2022-05-16] MEDS ORDERED: ISOVUE-370 76% 100ML VIAL As Ordered ONE (08:46)
[2022-05-16] MEDS: fentaNYL 100 MCG/2 ML INJECTION IV PRN ×2 (08:47→16:17)
[2022-05-16] MEDS: CHLORHEXIDINE GLUCONATE 0.12 % 15ML UDC (PERIDEX ORAL RINSE) MT SCH ×2 (09:18→20:25)
[2022-05-16] MEDS: PANTOPRAZOLE 40MG VIAL IV SCH (17:26)
[2022-05-16] MEDS: LACRILUBE (AKWA TEARS) OPHTH OINT 3.5GM OU SCH (20:25)
[2022-05-17] VITALS (34 sets, daily range): BP systolic 133–172; BP diastolic 61–76
[2022-05-17] MEDS ORDERED: ACETAMINOPHEN 1000MG 100ML IV BAG IV ONE (00:30)
[2022-05-17] MEDS: AMPICILLIN SOD/SULBACTAM SOD 3 GM in D5W MINI-BAG PLUS 100 ML IV SCH ×2 (00:44→06:03)
[2022-05-17] MEDS: dexmedeTOMidine 200 MCG in IV 1 EA IV SCH ×9 (02:07→21:59)
[2022-05-17] MEDS: propofoL 1,000 MG in IV 1 EA IV SCH ×11 (02:08→23:48)
[2022-05-17] MEDS: fentaNYL 100 MCG/2 ML INJECTION IV PRN (02:52)
[2022-05-17] MEDS ORDERED: KETOROLAC 30 MG/ML 1ML VIAL IV ONE (03:35)
[2022-05-17] MEDS: methylPREDNISolone 125MG 2ML VIAL IV SCH ×3 (04:05→20:16)
[2022-05-17 05:34] LABS: BASO % 0.3 % (0.0-1.0); HEMOGLOBIN 14.7 g/dl (13.5-17.5); LYMPH # 0.7 10^3/uL (1.5-5.0); LYMPH % 6.2 % (24.0-44.0); MEAN CORPUSCULAR HEMOGLOBIN 30.9 pg (27.0-33.0); MEAN CORPUSCULAR HGB CONC 32.7 g/dl (32.0-36.5); MEAN CORPUSCULAR VOLUME 94.7 fl (80.0-96.0); MONO # 0.8 10^3/uL (0.0-0.8); MONO % 6.8 % (2.0-8.0); NEUTROPHILS # 9.5 10^3/uL (1.5-8.5); NEUTROPHILS % 84.9 % (36.0-66.0); PLATELET COUNT, AUTOMATED 184 10^3/uL (150-450); RED BLOOD COUNT 4.75 10^6/uL (4.30-6.10); WHITE BLOOD COUNT 11.2 10^3/uL (4.0-10.0)
[2022-05-17 05:44] LABS: ABG BASE EXCESS 0.5 (-2.0-2.0); ABG HCO3 24.8 MEQ/L (22.0-26.0); ABG O2 SATURATION 97.8 % (95.0-99.0); ABG PARTIAL PRESSURE CO2 39.1 mmHg (35.0-45.0); ABG PARTIAL PRESSURE O2 101.3 mmHg (75.0-100.0); ABG STANDARD HCO3 24.9 MEQ/L (22.0-26.0)
[2022-05-17] MEDS: INSULIN LISPRO (NovoLOG) PER UNIT SC SCH ×4 (05:58→23:51)
[2022-05-17 05:59] LABS: BLOOD UREA NITROGEN 35 MG/DL (9-23); CALCIUM LEVEL 8.3 MG/DL (8.5-10.1); CARBON DIOXIDE LEVEL 26 MMOL/L (20-31); CHLORIDE LEVEL 101 MMOL/L (98-107); CREATININE FOR GFR 0.83 MG/DL (0.70-1.30); GLOMERULAR FILTRATION RATE > 60.0 (>56); GLUCOSE, FASTING 330 MG/DL (60-100); SODIUM LEVEL 134 MMOL/L (136-145)
[2022-05-17] MEDS: IPRATROPIUM 0.5MG/ALBUTEROL 2.5MG INH SOL UD 3ML (DUONEB) NEB SCH ×4 (07:24→19:55)
[2022-05-17] MEDS: CHLORHEXIDINE GLUCONATE 0.12 % 15ML UDC (PERIDEX ORAL RINSE) MT SCH ×2 (07:57→20:16)
[2022-05-17] MEDS: DOXYCYCLINE HYCLATE 100 MG in D5W MINI-BAG PLUS 100 ML IV SCH ×2 (07:57→08:00)
[2022-05-17] MEDS: LACRILUBE (AKWA TEARS) OPHTH OINT 3.5GM OU SCH ×2 (07:58→20:16)
[2022-05-17] MEDS: PIPERACILLIN/TAZOBACTAM SOD 4.5 GM in D5W MINI-BAG PLUS 50 ML IV SCH ×3 (11:43→22:02)
[2022-05-17] MEDS ORDERED: VANCOMYCIN HCL 1,000 MG, VIAL MATE ADAPTER 1 EACH in NS 250 ML IV ONE (12:00)
[2022-05-17] MEDS: VANCOMYCIN HCL 1,000 MG, VIAL MATE ADAPTER 1 EACH in NS 250 ML IV SCH ×2 (14:02→21:22)
[2022-05-17] MEDS: PANTOPRAZOLE 40MG VIAL IV SCH (17:52)
[2022-05-17] MEDS: ENOXAPARIN 40MG/0.4ML SYRINGE (J1650 PER 10MG) SC SCH (20:16)
[2022-05-17] MEDS: MIDAZOLAM INJ 2MG/2ML VIAL IV PRN (22:02)
[2022-05-18] VITALS (30 sets, daily range): BP systolic 136–173; BP diastolic 63–81
[2022-05-18] MEDS: dexmedeTOMidine 200 MCG in IV 1 EA IV SCH ×10 (00:20→23:23)
[2022-05-18] MEDS: fentaNYL 100 MCG/2 ML INJECTION IV PRN ×3 (02:24→23:43)
[2022-05-18] MEDS: propofoL 1,000 MG in IV 1 EA IV SCH ×9 (02:25→22:11)
[2022-05-18] MEDS: MIDAZOLAM INJ 2MG/2ML VIAL IV PRN ×5 (03:28→21:55)
[2022-05-18] MEDS: PIPERACILLIN/TAZOBACTAM SOD 4.5 GM in D5W MINI-BAG PLUS 50 ML IV SCH ×4 (04:51→23:23)
[2022-05-18] MEDS: methylPREDNISolone 125MG 2ML VIAL IV SCH ×3 (04:52→20:26)
[2022-05-18] MEDS ORDERED: hydrALAZINE 20MG/ML 1ML VIAL IV PRN (06:00)
[2022-05-18 06:09] LABS: ABG pH (ARTERIAL) 7.399 UNITS (7.350-7.450)
[2022-05-18] MEDS: INSULIN LISPRO (NovoLOG) PER UNIT SC SCH ×4 (06:09→23:34)
[2022-05-18 06:10] LABS: ABG BASE EXCESS -0.5 (-2.0-2.0); ABG HCO3 24.2 MEQ/L (22.0-26.0); ABG O2 SATURATION 98.3 % (95.0-99.0); ABG PARTIAL PRESSURE O2 112.7 mmHg (75.0-100.0); ABG STANDARD HCO3 24.1 MEQ/L (22.0-26.0); ABG TOTAL CO2 25.4 MEQ/L (22.0-29.0)
[2022-05-18] MEDS: VANCOMYCIN HCL 1,000 MG, VIAL MATE ADAPTER 1 EACH in NS 250 ML IV SCH ×3 (06:10→21:54)
[2022-05-18 06:20] LABS: BASO # 0.1 10^3/uL (0.0-0.2); BASO % 0.5 % (0.0-1.0); HEMATOCRIT 46.3 % (42.0-52.0); HEMOGLOBIN 15.5 g/dl (13.5-17.5); LYMPH # 0.8 10^3/uL (1.5-5.0); LYMPH % 8.1 % (24.0-44.0); MEAN CORPUSCULAR HEMOGLOBIN 31.6 pg (27.0-33.0); MEAN CORPUSCULAR HGB CONC 33.5 g/dl (32.0-36.5); MEAN CORPUSCULAR VOLUME 94.5 fl (80.0-96.0); MONO # 0.7 10^3/uL (0.0-0.8); MONO % 7.3 % (2.0-8.0); NEUTROPHILS # 7.5 10^3/uL (1.5-8.5); NEUTROPHILS % 81.3 % (36.0-66.0); PLATELET COUNT, AUTOMATED 172 10^3/uL (150-450); WHITE BLOOD COUNT 9.2 10^3/uL (4.0-10.0)
[2022-05-18 06:50] LABS: BLOOD UREA NITROGEN 35 MG/DL (9-23); CALCIUM LEVEL 8.4 MG/DL (8.5-10.1); CARBON DIOXIDE LEVEL 26 MMOL/L (20-31); CHLORIDE LEVEL 101 MMOL/L (98-107); CREATININE FOR GFR 0.65 MG/DL (0.70-1.30); GLOMERULAR FILTRATION RATE > 60.0 (>56); GLUCOSE, FASTING 344 MG/DL (60-100); POTASSIUM SERUM 5.1 MMOL/L (3.5-5.1); SODIUM LEVEL 135 MMOL/L (136-145)
[2022-05-18] MEDS: LACRILUBE (AKWA TEARS) OPHTH OINT 3.5GM OU SCH ×2 (07:40→20:27)
[2022-05-18] MEDS: CHLORHEXIDINE GLUCONATE 0.12 % 15ML UDC (PERIDEX ORAL RINSE) MT SCH ×2 (07:40→20:26)
[2022-05-18] MEDS: IPRATROPIUM 0.5MG/ALBUTEROL 2.5MG INH SOL UD 3ML (DUONEB) NEB SCH ×4 (07:49→19:37)
[2022-05-18] MEDS: PANTOPRAZOLE 40MG VIAL IV SCH (17:44)
[2022-05-18] MEDS: ENOXAPARIN 40MG/0.4ML SYRINGE (J1650 PER 10MG) SC SCH (20:26)
[2022-05-19] VITALS (24 sets, daily range): BP systolic 134–156; BP diastolic 64–76
[2022-05-19] MEDS: propofoL 1,000 MG in IV 1 EA IV SCH ×11 (00:03→23:32)
[2022-05-19] MEDS: dexmedeTOMidine 200 MCG in IV 1 EA IV SCH ×11 (01:50→23:31)
[2022-05-19] MEDS: MIDAZOLAM INJ 2MG/2ML VIAL IV PRN ×7 (02:32→23:52)
[2022-05-19 04:52] LABS: HEMATOCRIT 47.1 % (42.0-52.0); HEMOGLOBIN 15.6 g/dl (13.5-17.5); MEAN CORPUSCULAR HEMOGLOBIN 31.5 pg (27.0-33.0); MEAN CORPUSCULAR HGB CONC 33.1 g/dl (32.0-36.5); MEAN CORPUSCULAR VOLUME 95.2 fl (80.0-96.0); PLATELET COUNT, AUTOMATED 178 10^3/uL (150-450); RED BLOOD COUNT 4.95 10^6/uL (4.30-6.10); WHITE BLOOD COUNT 9.5 10^3/uL (4.0-10.0)
[2022-05-19] MEDS: PIPERACILLIN/TAZOBACTAM SOD 4.5 GM in D5W MINI-BAG PLUS 50 ML IV SCH (05:05)
[2022-05-19] MEDS: methylPREDNISolone 125MG 2ML VIAL IV SCH ×3 (05:05→20:24)
[2022-05-19 05:12] LABS: BLOOD UREA NITROGEN 38 MG/DL (9-23); CALCIUM LEVEL 7.8 MG/DL (8.5-10.1); CARBON DIOXIDE LEVEL 26 MMOL/L (20-31); CHLORIDE LEVEL 103 MMOL/L (98-107); CREATININE FOR GFR 0.64 MG/DL (0.70-1.30); GLOMERULAR FILTRATION RATE > 60.0 (>56); GLUCOSE, FASTING 365 MG/DL (60-100); POTASSIUM SERUM 5.1 MMOL/L (3.5-5.1); SODIUM LEVEL 137 MMOL/L (136-145)
[2022-05-19 05:28] LABS: ATYPICAL LYMPH 3 % (0-5); LYMPHOCYTES 5 % (16-44); MONOCYTES 4 % (0-5); NEUTROPHILS 86 % (28-66); PLATELET ESTIMATE NORMAL (NORMAL)
[2022-05-19 05:29] LABS: ANISOCYTOSIS 1+
[2022-05-19 05:52] LABS: ABG BASE EXCESS 0.9 (-2.0-2.0); ABG HCO3 25.5 MEQ/L (22.0-26.0); ABG O2 SATURATION 93.4 % (95.0-99.0); ABG PARTIAL PRESSURE CO2 40.5 mmHg (35.0-45.0); ABG PARTIAL PRESSURE O2 68.4 mmHg (75.0-100.0); ABG STANDARD HCO3 25.2 MEQ/L (22.0-26.0); ABG TOTAL CO2 26.7 MEQ/L (22.0-29.0); ABG pH (ARTERIAL) 7.417 UNITS (7.350-7.450)
[2022-05-19] MEDS: VANCOMYCIN HCL 1,000 MG, VIAL MATE ADAPTER 1 EACH in NS 250 ML IV SCH (06:16)
[2022-05-19] MEDS: INSULIN LISPRO (NovoLOG) PER UNIT SC SCH ×4 (06:17→23:51)
[2022-05-19] MEDS ORDERED: LEVEMIR (INSULIN DETEMIR) 1 UNITS/0.01ML SC ONE (07:30)
[2022-05-19] MEDS: fentaNYL 100 MCG/2 ML INJECTION IV PRN ×3 (07:54→23:52)
[2022-05-19] MEDS: IPRATROPIUM 0.5MG/ALBUTEROL 2.5MG INH SOL UD 3ML (DUONEB) NEB SCH ×4 (08:27→19:14)
[2022-05-19] MEDS ORDERED: MIRALAX *UNIT DOSE* 17GM PACKET GT PRN (08:30)
[2022-05-19] MEDS: LACRILUBE (AKWA TEARS) OPHTH OINT 3.5GM OU SCH ×2 (09:27→20:25)
[2022-05-19] MEDS: CHLORHEXIDINE GLUCONATE 0.12 % 15ML UDC (PERIDEX ORAL RINSE) MT SCH ×2 (09:28→20:25)
[2022-05-19] MEDS: ceFAZolin SOD 2 GM in IV 1 EA IV SCH ×2 (10:45→18:22)
[2022-05-19] MEDS: PANTOPRAZOLE 40MG VIAL IV SCH (18:22)
[2022-05-19] MEDS: ENOXAPARIN 40MG/0.4ML SYRINGE (J1650 PER 10MG) SC SCH (20:24)
[2022-05-19] MEDS: LEVEMIR (INSULIN DETEMIR) 1 UNITS/0.01ML SC SCH (20:25)
[2022-05-20] VITALS (26 sets, daily range): BP systolic 112–161; BP diastolic 55–78
[2022-05-20] MEDS: dexmedeTOMidine 200 MCG in IV 1 EA IV SCH ×7 (01:45→15:57)
[2022-05-20] MEDS: propofoL 1,000 MG in IV 1 EA IV SCH ×9 (02:24→22:10)
[2022-05-20] MEDS: ceFAZolin SOD 2 GM in IV 1 EA IV SCH ×3 (02:26→18:03)
[2022-05-20] MEDS: MIDAZOLAM INJ 2MG/2ML VIAL IV PRN ×2 (03:18→21:27)
[2022-05-20 04:59] LABS: HEMATOCRIT 50.5 % (42.0-52.0); HEMOGLOBIN 16.3 g/dl (13.5-17.5); MEAN CORPUSCULAR HEMOGLOBIN 30.5 pg (27.0-33.0); MEAN CORPUSCULAR HGB CONC 32.3 g/dl (32.0-36.5); MEAN CORPUSCULAR VOLUME 94.4 fl (80.0-96.0); PLATELET COUNT, AUTOMATED 177 10^3/uL (150-450); RED BLOOD COUNT 5.35 10^6/uL (4.30-6.10); WHITE BLOOD COUNT 11.4 10^3/uL (4.0-10.0)
[2022-05-20 05:29] LABS: BLOOD UREA NITROGEN 38 MG/DL (9-23); CALCIUM LEVEL 8.3 MG/DL (8.5-10.1); CARBON DIOXIDE LEVEL 25 MMOL/L (20-31); CHLORIDE LEVEL 102 MMOL/L (98-107); CREATININE FOR GFR 0.63 MG/DL (0.70-1.30); GLOMERULAR FILTRATION RATE > 60.0 (>56); GLUCOSE, FASTING 345 MG/DL (60-100); SODIUM LEVEL 135 MMOL/L (136-145)
[2022-05-20] MEDS: methylPREDNISolone 125MG 2ML VIAL IV SCH ×3 (05:46→20:35)
[2022-05-20] MEDS: INSULIN LISPRO (NovoLOG) PER UNIT SC SCH ×4 (05:46→23:55)
[2022-05-20 05:52] LABS: ABG BASE EXCESS 0.3 (-2.0-2.0); ABG HCO3 23.5 MEQ/L (22.0-26.0); ABG O2 SATURATION 97.3 % (95.0-99.0); ABG PARTIAL PRESSURE CO2 34.4 mmHg (35.0-45.0); ABG PARTIAL PRESSURE O2 94.6 mmHg (75.0-100.0); ABG STANDARD HCO3 24.8 MEQ/L (22.0-26.0); ABG TOTAL CO2 24.6 MEQ/L (22.0-29.0); ABG pH (ARTERIAL) 7.453 UNITS (7.350-7.450)
[2022-05-20 06:01] LABS: ATYPICAL LYMPH 2 % (0-5); LYMPHOCYTES 9 % (16-44); METAMYELOCYTES 1 % (0-0); MONOCYTES 6 % (0-5); NEUTROPHILS 80 % (28-66); PLATELET ESTIMATE NORMAL (NORMAL)
[2022-05-20 06:02] LABS: ANISOCYTOSIS 1+
[2022-05-20] MEDS: IPRATROPIUM 0.5MG/ALBUTEROL 2.5MG INH SOL UD 3ML (DUONEB) NEB SCH ×4 (07:47→20:20)
[2022-05-20] MEDS ORDERED: LACTULOSE 20GM/30ML SYRUP UDC GT ONE (08:30)
[2022-05-20] MEDS: CHLORHEXIDINE GLUCONATE 0.12 % 15ML UDC (PERIDEX ORAL RINSE) MT SCH ×2 (08:55→20:35)
[2022-05-20] MEDS: LACRILUBE (AKWA TEARS) OPHTH OINT 3.5GM OU SCH ×2 (08:55→20:36)
[2022-05-20] MEDS ORDERED: hydrALAZINE 20MG/ML 1ML VIAL IV PRN (09:55)
[2022-05-20] MEDS ORDERED: LIDOCAINE W/EPINEPHRINE 1% 20ML VIAL As Ordered ONE (15:48)
[2022-05-20] MEDS ORDERED: PHENYLEPHRINE 0.5% NASAL SPRAY 15 ML As Ordered ONE (15:48)
[2022-05-20] MEDS ORDERED: LIDOCAINE W/EPINEPHRINE 1% 20ML VIAL ONE (15:49)
[2022-05-20] MEDS ORDERED: ROCURONIUM BROMIDE 50MG/5ML VIAL As Ordered ONE ×2 (15:56→16:54)
[2022-05-20] MEDS ORDERED: propofoL 200 MG/20 ML VIAL As Ordered ONE (15:56)
[2022-05-20] MEDS ORDERED: SUGAMMADEX SODIUM 500 MG/5 ML VIAL (BRIDION) As Ordered ONE (15:57)
[2022-05-20] MEDS ORDERED: LIDOCAINE 2% 100MG/5ML SDV (FOR ANES.) As Ordered ONE (15:58)
[2022-05-20] MEDS ORDERED: fentaNYL 100 MCG/2 ML INJECTION As Ordered ONE (15:59)
[2022-05-20] MEDS ORDERED: ONDANSETRON 4MG 2ML VIAL As Ordered ONE (16:56)
[2022-05-20] MEDS: PANTOPRAZOLE 40MG VIAL IV SCH (18:03)
[2022-05-20] MEDS ORDERED: ACETAMINOPHEN 1000MG 100ML IV BAG IV ONE (18:40)
[2022-05-20] MEDS ORDERED: ACETAMINOPHEN *IV* 1,000 MG IV ONE ×2 (19:00)
[2022-05-20] MEDS: fentaNYL 100 MCG/2 ML INJECTION IV PRN ×2 (19:44→23:00)
[2022-05-20] MEDS: ENOXAPARIN 40MG/0.4ML SYRINGE (J1650 PER 10MG) SC SCH (20:35)
[2022-05-20] MEDS: LEVEMIR (INSULIN DETEMIR) 1 UNITS/0.01ML SC SCH (20:35)
[2022-05-21] VITALS (31 sets, daily range): BP systolic 129–174; BP diastolic 63–84; O2SAT 94
[2022-05-21] MEDS: propofoL 1,000 MG in IV 1 EA IV SCH ×4 (00:16→06:38)
[2022-05-21] MEDS: ceFAZolin SOD 2 GM in IV 1 EA IV SCH ×3 (02:23→18:03)
[2022-05-21] MEDS: MIDAZOLAM INJ 2MG/2ML VIAL IV PRN (02:41)
[2022-05-21] MEDS: methylPREDNISolone 125MG 2ML VIAL IV SCH ×2 (04:28→16:19)
[2022-05-21 04:51] LABS: BASO # 0.1 10^3/uL (0.0-0.2); BASO % 0.6 % (0.0-1.0); HEMATOCRIT 47.5 % (42.0-52.0); HEMOGLOBIN 15.6 g/dl (13.5-17.5); LYMPH # 1.6 10^3/uL (1.5-5.0); LYMPH % 8.4 % (24.0-44.0); MEAN CORPUSCULAR HEMOGLOBIN 30.9 pg (27.0-33.0); MEAN CORPUSCULAR HGB CONC 32.8 g/dl (32.0-36.5); MEAN CORPUSCULAR VOLUME 94.1 fl (80.0-96.0); MONO # 1.3 10^3/uL (0.0-0.8); MONO % 6.8 % (2.0-8.0); NEUTROPHILS # 14.8 10^3/uL (1.5-8.5); NEUTROPHILS % 79.4 % (36.0-66.0); PLATELET COUNT, AUTOMATED 186 10^3/uL (150-450); RED BLOOD COUNT 5.05 10^6/uL (4.30-6.10); WHITE BLOOD COUNT 18.6 10^3/uL (4.0-10.0)
[2022-05-21 05:16] LABS: ABG BASE EXCESS 2.5 (-2.0-2.0); ABG HCO3 26.8 MEQ/L (22.0-26.0); ABG O2 SATURATION 97.2 % (95.0-99.0); ABG PARTIAL PRESSURE CO2 40.2 mmHg (35.0-45.0); ABG STANDARD HCO3 26.7 MEQ/L (22.0-26.0); ABG pH (ARTERIAL) 7.441 UNITS (7.350-7.450)
[2022-05-21 05:24] LABS: ALBUMIN 2.6 G/DL (3.2-5.2); ALKALINE PHOSPHATASE 54 U/L (46-116); ALT/SGPT 32 U/L (7.0-40); AST/SGOT 25 U/L (<34); BILIRUBIN,TOTAL 0.5 MG/DL (0.3-1.2); BLOOD UREA NITROGEN 37 MG/DL (9-23); CALCIUM LEVEL 8.3 MG/DL (8.5-10.1); CARBON DIOXIDE LEVEL 25 MMOL/L (20-31); CHLORIDE LEVEL 102 MMOL/L (98-107); CREATININE FOR GFR 0.67 MG/DL (0.70-1.30); GLOMERULAR FILTRATION RATE > 60.0 (>56); GLUCOSE, FASTING 245 MG/DL (60-100); POTASSIUM SERUM 4.5 MMOL/L (3.5-5.1); SODIUM LEVEL 136 MMOL/L (136-145); TOTAL PROTEIN 5.7 G/DL (5.7-8.2)
[2022-05-21] MEDS: INSULIN LISPRO (NovoLOG) PER UNIT SC SCH ×3 (06:01→18:03)
[2022-05-21] MEDS: IPRATROPIUM 0.5MG/ALBUTEROL 2.5MG INH SOL UD 3ML (DUONEB) NEB SCH ×4 (07:25→20:45)
[2022-05-21] MEDS: LACRILUBE (AKWA TEARS) OPHTH OINT 3.5GM OU SCH ×2 (08:48→21:00)
[2022-05-21] MEDS: fentaNYL 100 MCG/2 ML INJECTION IV PRN ×2 (08:49→12:42)
[2022-05-21] MEDS: CHLORHEXIDINE GLUCONATE 0.12 % 15ML UDC (PERIDEX ORAL RINSE) MT SCH ×2 (08:50→21:12)
[2022-05-21] MEDS: SENOKOT S TAB GT SCH ×2 (09:00→21:00)
[2022-05-21] MEDS: MIRALAX *UNIT DOSE* 17GM PACKET GT SCH ×2 (09:00→21:00)
[2022-05-21] MEDS ORDERED: LIDOCAINE 1% MDV 20ML VIAL XX ONE (11:45)
[2022-05-21] MEDS: PANTOPRAZOLE 40MG VIAL IV SCH (18:03)
[2022-05-21] MEDS ORDERED: LEVEMIR (INSULIN DETEMIR) 1 UNITS/0.01ML SC SCH (21:00)
[2022-05-21] MEDS: ENOXAPARIN 40MG/0.4ML SYRINGE (J1650 PER 10MG) SC SCH (21:12)
[2022-05-22] VITALS (15 sets, daily range): BP systolic 123–168; BP diastolic 63–97
[2022-05-22] MEDS: INSULIN LISPRO (NovoLOG) PER UNIT SC SCH ×4 (01:39→18:22)
[2022-05-22] MEDS: ceFAZolin SOD 2 GM in IV 1 EA IV SCH ×3 (04:05→18:22)
[2022-05-22] MEDS: methylPREDNISolone 125MG 2ML VIAL IV SCH (05:30)
[2022-05-22 05:35] LABS: BASO # 0.1 10^3/uL (0.0-0.2); BASO % 0.6 % (0.0-1.0); EOS % 0.1 % (0.0-3.0); HEMATOCRIT 47.7 % (42.0-52.0); HEMOGLOBIN 15.6 g/dl (13.5-17.5); LYMPH % 16.4 % (24.0-44.0); MEAN CORPUSCULAR HEMOGLOBIN 31.3 pg (27.0-33.0); MEAN CORPUSCULAR HGB CONC 32.7 g/dl (32.0-36.5); MEAN CORPUSCULAR VOLUME 95.6 fl (80.0-96.0); MONO # 0.8 10^3/uL (0.0-0.8); MONO % 4.6 % (2.0-8.0); NEUTROPHILS # 13.7 10^3/uL (1.5-8.5); NEUTROPHILS % 75.6 % (36.0-66.0); PLATELET COUNT, AUTOMATED 172 10^3/uL (150-450); RED BLOOD COUNT 4.99 10^6/uL (4.30-6.10); WHITE BLOOD COUNT 18.2 10^3/uL (4.0-10.0)
[2022-05-22 05:53] LABS: ABG BASE EXCESS 6.3 (-2.0-2.0); ABG HCO3 31.7 MEQ/L (22.0-26.0); ABG O2 SATURATION 98.3 % (95.0-99.0); ABG PARTIAL PRESSURE CO2 47.7 mmHg (35.0-45.0); ABG PARTIAL PRESSURE O2 103.9 mmHg (75.0-100.0); ABG STANDARD HCO3 30.2 MEQ/L (22.0-26.0); ABG TOTAL CO2 33.2 MEQ/L (22.0-29.0); ABG pH (ARTERIAL) 7.441 UNITS (7.350-7.450)
[2022-05-22 06:05] LABS: ALBUMIN 2.7 G/DL (3.2-5.2); ALKALINE PHOSPHATASE 62 U/L (46-116); ALT/SGPT 33 U/L (7.0-40); AST/SGOT 24 U/L (<34); BILIRUBIN,TOTAL 0.9 MG/DL (0.3-1.2); BLOOD UREA NITROGEN 38 MG/DL (9-23); CALCIUM LEVEL 8.3 MG/DL (8.5-10.1); CARBON DIOXIDE LEVEL 30 MMOL/L (20-31); CHLORIDE LEVEL 105 MMOL/L (98-107); CREATININE FOR GFR 0.59 MG/DL (0.70-1.30); GLOMERULAR FILTRATION RATE > 60.0 (>56); GLUCOSE, FASTING 121 MG/DL (60-100); POTASSIUM SERUM 3.9 MMOL/L (3.5-5.1); SODIUM LEVEL 142 MMOL/L (136-145); TOTAL PROTEIN 5.7 G/DL (5.7-8.2)
[2022-05-22] MEDS: IPRATROPIUM 0.5MG/ALBUTEROL 2.5MG INH SOL UD 3ML (DUONEB) NEB SCH ×4 (08:04→20:36)
[2022-05-22] MEDS: MIRALAX *UNIT DOSE* 17GM PACKET GT SCH ×2 (08:59→21:00)
[2022-05-22] MEDS: CHLORHEXIDINE GLUCONATE 0.12 % 15ML UDC (PERIDEX ORAL RINSE) MT SCH ×2 (08:59→21:00)
[2022-05-22] MEDS: SENOKOT S TAB GT SCH ×2 (08:59→21:00)
[2022-05-22] MEDS: LACRILUBE (AKWA TEARS) OPHTH OINT 3.5GM OU SCH ×2 (09:00→21:00)
[2022-05-22] MEDS: PANTOPRAZOLE 40MG VIAL IV SCH (18:22)
[2022-05-22] MEDS: methylPREDNISolone 40MG 1ML VIAL IV SCH (18:26)
[2022-05-22] MEDS ORDERED: LEVEMIR (INSULIN DETEMIR) 1 UNITS/0.01ML SC SCH (21:00)
[2022-05-22] MEDS: ENOXAPARIN 40MG/0.4ML SYRINGE (J1650 PER 10MG) SC SCH (22:33)
[2022-05-23] VITALS: BP 157/82
[2022-05-23] MEDS: INSULIN LISPRO (NovoLOG) PER UNIT SC SCH ×5 (00:24→20:29)
[2022-05-23 04:00] VITALS: BP 146/69
[2022-05-23] MEDS: ceFAZolin SOD 2 GM in IV 1 EA IV SCH ×3 (04:05→18:47)
[2022-05-23] MEDS: methylPREDNISolone 40MG 1ML VIAL IV SCH ×2 (05:51→17:27)
[2022-05-23] MEDS ORDERED: MORPHINE 2 MG/ML 1ML VIAL IV PRN ×2 (07:10)
[2022-05-23] MEDS: IPRATROPIUM 0.5MG/ALBUTEROL 2.5MG INH SOL UD 3ML (DUONEB) NEB SCH ×4 (07:51→20:13)
[2022-05-23 08:00] VITALS: BP 151/99
[2022-05-23 08:13] LABS: HEMATOCRIT 53.9 % (42.0-52.0); MEAN CORPUSCULAR HEMOGLOBIN 31.6 pg (27.0-33.0); MEAN CORPUSCULAR VOLUME 95.6 fl (80.0-96.0); PLATELET COUNT, AUTOMATED 232 10^3/uL (150-450); RED BLOOD COUNT 5.64 10^6/uL (4.30-6.10); WHITE BLOOD COUNT 19.3 10^3/uL (4.0-10.0)
[2022-05-23 08:15] LABS: HEMOGLOBIN 17.8 g/dl (13.5-17.5)
[2022-05-23 08:39] LABS: ALBUMIN 3.4 G/DL (3.2-5.2); ALKALINE PHOSPHATASE 76 U/L (46-116); ALT/SGPT 41 U/L (7.0-40); AST/SGOT 22 U/L (<34); BILIRUBIN,TOTAL 1.4 MG/DL (0.3-1.2); BLOOD UREA NITROGEN 33 MG/DL (9-23); CALCIUM LEVEL 9.4 MG/DL (8.5-10.1); CARBON DIOXIDE LEVEL 26 MMOL/L (20-31); CHLORIDE LEVEL 104 MMOL/L (98-107); CREATININE FOR GFR 0.55 MG/DL (0.70-1.30); GLOMERULAR FILTRATION RATE > 60.0 (>56); GLUCOSE, FASTING 192 MG/DL (60-100); POTASSIUM SERUM 4.3 MMOL/L (3.5-5.1); SODIUM LEVEL 139 MMOL/L (136-145); TOTAL PROTEIN 7.2 G/DL (5.7-8.2)
[2022-05-23] MEDS: SENOKOT S TAB GT SCH ×2 (08:44→20:28)
[2022-05-23] MEDS: CHLORHEXIDINE GLUCONATE 0.12 % 15ML UDC (PERIDEX ORAL RINSE) MT SCH ×2 (08:44→20:28)
[2022-05-23] MEDS: MIRALAX *UNIT DOSE* 17GM PACKET GT SCH ×2 (08:44→20:28)
[2022-05-23] MEDS ORDERED: E-Z-PAQUE 96% w/w SUSP 176GM BTL As Ordered ONE (10:31)
[2022-05-23] MEDS ORDERED: VARIBAR NECTAR 40% w/v 240ML SUSP BTL As Ordered ONE (10:31)
[2022-05-23] MEDS ORDERED: BARIUM SULFATE 700 MG TABLET (E-Z-DISK) As Ordered ONE (10:31)
[2022-05-23] MEDS ORDERED: VARIBAR PUDDING 40% w/v 230ML TUBE As Ordered ONE (10:31)
[2022-05-23 12:00] VITALS: BP 156/85
[2022-05-23 17:14] VITALS: BP 141/85
[2022-05-23] MEDS ORDERED: DEXTROSE 50% 50ML SYRINGE IV PRN (17:15)
[2022-05-23] MEDS ORDERED: GLUCAGON INJ 1MG VIAL SC PRN (17:15)
[2022-05-23] MEDS ORDERED: GLUCOSE 4GM CHEW TABLET PO PRN (17:15)
[2022-05-23] MEDS: NS 1,000 ML IV SCH (17:27)
[2022-05-23] MEDS: PANTOPRAZOLE 40MG VIAL IV SCH (18:47)
[2022-05-23 20:00] VITALS: BP 160/77
[2022-05-23] MEDS: ENOXAPARIN 40MG/0.4ML SYRINGE (J1650 PER 10MG) SC SCH (20:28)
[2022-05-23] MEDS: LEVEMIR (INSULIN DETEMIR) 1 UNITS/0.01ML SC SCH (20:28)
[2022-05-24] VITALS: BP 139/64
[2022-05-24] MEDS: NS 1,000 ML IV SCH ×3 (03:57→23:45)
[2022-05-24] MEDS: ceFAZolin SOD 2 GM in IV 1 EA IV SCH ×3 (03:58→18:10)
[2022-05-24 04:00] VITALS: BP 137/75
[2022-05-24] MEDS: methylPREDNISolone 40MG 1ML VIAL IV SCH ×2 (04:02→18:10)
[2022-05-24 05:04] LABS: HEMATOCRIT 49.2 % (42.0-52.0); HEMOGLOBIN 16.3 g/dl (13.5-17.5); MEAN CORPUSCULAR HEMOGLOBIN 31.5 pg (27.0-33.0); MEAN CORPUSCULAR HGB CONC 33.1 g/dl (32.0-36.5); PLATELET COUNT, AUTOMATED 231 10^3/uL (150-450); RED BLOOD COUNT 5.18 10^6/uL (4.30-6.10); WHITE BLOOD COUNT 14.3 10^3/uL (4.0-10.0)
[2022-05-24 05:37] LABS: ALBUMIN 2.8 G/DL (3.2-5.2); ALKALINE PHOSPHATASE 76 U/L (46-116); ALT/SGPT 40 U/L (7.0-40); AST/SGOT 23 U/L (<34); BILIRUBIN,TOTAL 1.1 MG/DL (0.3-1.2); BLOOD UREA NITROGEN 41 MG/DL (9-23); CALCIUM LEVEL 8.6 MG/DL (8.5-10.1); CARBON DIOXIDE LEVEL 25 MMOL/L (20-31); CHLORIDE LEVEL 105 MMOL/L (98-107); CREATININE FOR GFR 0.55 MG/DL (0.70-1.30); GLOMERULAR FILTRATION RATE > 60.0 (>56); GLUCOSE, FASTING 193 MG/DL (60-100); POTASSIUM SERUM 4.6 MMOL/L (3.5-5.1); SODIUM LEVEL 140 MMOL/L (136-145); TOTAL PROTEIN 6.3 G/DL (5.7-8.2)
[2022-05-24] MEDS: IPRATROPIUM 0.5MG/ALBUTEROL 2.5MG INH SOL UD 3ML (DUONEB) NEB SCH ×4 (07:44→21:00)
[2022-05-24 08:04] VITALS: BP 143/67
[2022-05-24] MEDS: MIRALAX *UNIT DOSE* 17GM PACKET GT SCH ×2 (08:24→20:12)
[2022-05-24] MEDS: CHLORHEXIDINE GLUCONATE 0.12 % 15ML UDC (PERIDEX ORAL RINSE) MT SCH ×2 (08:24→20:13)
[2022-05-24] MEDS: INSULIN LISPRO (NovoLOG) PER UNIT SC SCH ×4 (08:24→20:14)
[2022-05-24] MEDS: SENOKOT S TAB GT SCH ×2 (08:25→20:19)
[2022-05-24 12:15] VITALS: BP 141/66
[2022-05-24 15:52] VITALS: BP 144/68
[2022-05-24] MEDS: PANTOPRAZOLE 40MG VIAL IV SCH (18:09)
[2022-05-24 20:00] VITALS: BP 135/64
[2022-05-24] MEDS: ENOXAPARIN 40MG/0.4ML SYRINGE (J1650 PER 10MG) SC SCH (20:13)
[2022-05-24] MEDS: LEVEMIR (INSULIN DETEMIR) 1 UNITS/0.01ML SC SCH (20:14)
[2022-05-25] VITALS: BP 136/63
[2022-05-25 03:30] VITALS: BP 125/69
[2022-05-25] MEDS: methylPREDNISolone 40MG 1ML VIAL IV SCH ×2 (04:08→17:55)
[2022-05-25 05:57] LABS: HEMATOCRIT 43.3 % (42.0-52.0); MEAN CORPUSCULAR HEMOGLOBIN 31.7 pg (27.0-33.0); MEAN CORPUSCULAR HGB CONC 32.6 g/dl (32.0-36.5); MEAN CORPUSCULAR VOLUME 97.3 fl (80.0-96.0); PLATELET COUNT, AUTOMATED 156 10^3/uL (150-450); RED BLOOD COUNT 4.45 10^6/uL (4.30-6.10); WHITE BLOOD COUNT 10.6 10^3/uL (4.0-10.0)
[2022-05-25 05:59] LABS: HEMOGLOBIN 14.1 g/dl (13.5-17.5)
[2022-05-25 06:09] LABS: ALBUMIN 2.4 G/DL (3.2-5.2); ALKALINE PHOSPHATASE 62 U/L (46-116); ALT/SGPT 35 U/L (7.0-40); AST/SGOT 33 U/L (<34); BLOOD UREA NITROGEN 32 MG/DL (9-23); CALCIUM LEVEL 7.8 MG/DL (8.5-10.1); CARBON DIOXIDE LEVEL 25 MMOL/L (20-31); CHLORIDE LEVEL 104 MMOL/L (98-107); GLOMERULAR FILTRATION RATE > 60.0 (>56); GLUCOSE, FASTING 158 MG/DL (60-100); POTASSIUM SERUM 5.4 MMOL/L (3.5-5.1); SODIUM LEVEL 136 MMOL/L (136-145); TOTAL PROTEIN 5.4 G/DL (5.7-8.2)
[2022-05-25 07:39] VITALS: BP 141/65
[2022-05-25] MEDS: IPRATROPIUM 0.5MG/ALBUTEROL 2.5MG INH SOL UD 3ML (DUONEB) NEB SCH ×4 (08:17→20:39)
[2022-05-25] MEDS: MIRALAX *UNIT DOSE* 17GM PACKET GT SCH ×2 (09:00→20:54)
[2022-05-25] MEDS: INSULIN LISPRO (NovoLOG) PER UNIT SC SCH ×4 (10:18→20:45)
[2022-05-25] MEDS: CHLORHEXIDINE GLUCONATE 0.12 % 15ML UDC (PERIDEX ORAL RINSE) MT SCH ×2 (10:19→20:54)
[2022-05-25] MEDS: SENOKOT S TAB GT SCH ×2 (10:19→20:45)
[2022-05-25] MEDS: NS 1,000 ML IV SCH (10:19)
[2022-05-25 11:52] VITALS: BP 127/63
[2022-05-25 15:47] VITALS: BP 124/64
[2022-05-25] MEDS: PANTOPRAZOLE 40MG VIAL IV SCH (17:55)
[2022-05-25 20:40] VITALS: BP 119/65
[2022-05-25] MEDS: ENOXAPARIN 40MG/0.4ML SYRINGE (J1650 PER 10MG) SC SCH (20:54)
[2022-05-25] MEDS: LEVEMIR (INSULIN DETEMIR) 1 UNITS/0.01ML SC SCH (20:55)
[2022-05-26] VITALS (17 sets, daily range): BP systolic 118–150; BP diastolic 58–91; O2SAT 88–96
[2022-05-26] MEDS: methylPREDNISolone 40MG 1ML VIAL IV SCH (05:11)
[2022-05-26 06:44] LABS: HEMATOCRIT 41.4 % (42.0-52.0); HEMOGLOBIN 13.7 g/dl (13.5-17.5); MEAN CORPUSCULAR HGB CONC 33.1 g/dl (32.0-36.5); MEAN CORPUSCULAR VOLUME 93.7 fl (80.0-96.0); PLATELET COUNT, AUTOMATED 224 10^3/uL (150-450); RED BLOOD COUNT 4.42 10^6/uL (4.30-6.10); WHITE BLOOD COUNT 9.6 10^3/uL (4.0-10.0)
[2022-05-26 07:20] LABS: ALBUMIN 2.7 G/DL (3.2-5.2); ALKALINE PHOSPHATASE 67 U/L (46-116); ALT/SGPT 37 U/L (7.0-40); AST/SGOT 25 U/L (<34); BILIRUBIN,TOTAL 1.1 MG/DL (0.3-1.2); BLOOD UREA NITROGEN 20 MG/DL (9-23); CALCIUM LEVEL 8.6 MG/DL (8.5-10.1); CARBON DIOXIDE LEVEL 27 MMOL/L (20-31); CHLORIDE LEVEL 101 MMOL/L (98-107); CREATININE FOR GFR 0.53 MG/DL (0.70-1.30); GLOMERULAR FILTRATION RATE > 60.0 (>56); GLUCOSE, FASTING 98 MG/DL (60-100); SODIUM LEVEL 135 MMOL/L (136-145); TOTAL PROTEIN 5.6 G/DL (5.7-8.2)
[2022-05-26] MEDS: INSULIN LISPRO (NovoLOG) PER UNIT SC SCH ×4 (07:30→21:00)
[2022-05-26] MEDS: IPRATROPIUM 0.5MG/ALBUTEROL 2.5MG INH SOL UD 3ML (DUONEB) NEB SCH ×4 (08:05→19:47)
[2022-05-26] MEDS: CHLORHEXIDINE GLUCONATE 0.12 % 15ML UDC (PERIDEX ORAL RINSE) MT SCH ×2 (08:41→21:22)
[2022-05-26] MEDS: SENOKOT S TAB GT SCH ×2 (08:41→21:00)
[2022-05-26] MEDS: MIRALAX *UNIT DOSE* 17GM PACKET GT SCH ×2 (08:42→21:00)
[2022-05-26] MEDS ORDERED: predniSONE 20 MG TAB PO SCH (09:00)
[2022-05-26] MEDS: PANTOPRAZOLE 40MG VIAL IV SCH (18:02)
[2022-05-26] MEDS: ENOXAPARIN 40MG/0.4ML SYRINGE (J1650 PER 10MG) SC SCH (21:23)
[2022-05-26] MEDS: LEVEMIR (INSULIN DETEMIR) 1 UNITS/0.01ML SC SCH (21:23)
[2022-05-27] VITALS (25 sets, daily range): BP systolic 112–131; BP diastolic 57–65; O2SAT 79–99
[2022-05-27 05:40] LABS: HEMATOCRIT 43.1 % (42.0-52.0); HEMOGLOBIN 14.1 g/dl (13.5-17.5); MEAN CORPUSCULAR HGB CONC 32.7 g/dl (32.0-36.5); MEAN CORPUSCULAR VOLUME 94.7 fl (80.0-96.0); PLATELET COUNT, AUTOMATED 250 10^3/uL (150-450); RED BLOOD COUNT 4.55 10^6/uL (4.30-6.10); WHITE BLOOD COUNT 9.3 10^3/uL (4.0-10.0)
[2022-05-27 06:04] LABS: ALBUMIN 2.7 G/DL (3.2-5.2); ALKALINE PHOSPHATASE 67 U/L (46-116); ALT/SGPT 46 U/L (7.0-40); AST/SGOT 34 U/L (<34); BILIRUBIN,TOTAL 1.1 MG/DL (0.3-1.2); BLOOD UREA NITROGEN 23 MG/DL (9-23); CALCIUM LEVEL 8.6 MG/DL (8.5-10.1); CARBON DIOXIDE LEVEL 28 MMOL/L (20-31); CHLORIDE LEVEL 100 MMOL/L (98-107); CREATININE FOR GFR 0.68 MG/DL (0.70-1.30); GLOMERULAR FILTRATION RATE > 60.0 (>56); GLUCOSE, FASTING 79 MG/DL (60-100); POTASSIUM SERUM 4.1 MMOL/L (3.5-5.1); SODIUM LEVEL 136 MMOL/L (136-145); TOTAL PROTEIN 5.5 G/DL (5.7-8.2)
[2022-05-27] MEDS: IPRATROPIUM 0.5MG/ALBUTEROL 2.5MG INH SOL UD 3ML (DUONEB) NEB SCH ×4 (07:22→19:32)
[2022-05-27] MEDS: INSULIN LISPRO (NovoLOG) PER UNIT SC SCH ×4 (07:30→20:28)
[2022-05-27] MEDS: MIRALAX *UNIT DOSE* 17GM PACKET GT SCH ×2 (08:20→20:28)
[2022-05-27] MEDS: SENOKOT S TAB GT SCH ×2 (08:20→20:28)
[2022-05-27] MEDS: FUROSEMIDE 20 MG TAB GT SCH (08:22)
[2022-05-27] MEDS: CHLORHEXIDINE GLUCONATE 0.12 % 15ML UDC (PERIDEX ORAL RINSE) MT SCH ×2 (08:22→20:27)
[2022-05-27] MEDS: predniSONE 20 MG TAB PO SCH (08:22)
[2022-05-27] MEDS: EZETIMIBE 10MG TABLET (ZETIA) GT SCH (08:22)
[2022-05-27] MEDS: FAMOTIDINE 20 MG TAB PO SCH (12:49)
[2022-05-27] MEDS: PANTOPRAZOLE 40MG VIAL IV SCH (17:30)
[2022-05-27] MEDS: ATORVASTATIN 20 MG TAB GT SCH (20:27)
[2022-05-27] MEDS: ENOXAPARIN 40MG/0.4ML SYRINGE (J1650 PER 10MG) SC SCH (20:27)
[2022-05-27] MEDS: LEVEMIR (INSULIN DETEMIR) 1 UNITS/0.01ML SC SCH (20:28)
[2022-05-28] VITALS (23 sets, daily range): BP systolic 104–129; BP diastolic 51–60; O2SAT 81–98
[2022-05-28] MEDS: INSULIN LISPRO (NovoLOG) PER UNIT SC SCH ×4 (07:30→20:17)
[2022-05-28 07:33] LABS: BASO % 0.3 % (0.0-1.0); EOS # 0.1 10^3/uL (0.0-0.5); EOS % 0.5 % (0.0-3.0); HEMATOCRIT 42.6 % (42.0-52.0); HEMOGLOBIN 14.1 g/dl (13.5-17.5); LYMPH # 2.1 10^3/uL (1.5-5.0); LYMPH % 20.9 % (24.0-44.0); MEAN CORPUSCULAR HEMOGLOBIN 31.1 pg (27.0-33.0); MEAN CORPUSCULAR HGB CONC 33.1 g/dl (32.0-36.5); MONO # 0.8 10^3/uL (0.0-0.8); MONO % 7.9 % (2.0-8.0); NEUTROPHILS # 6.8 10^3/uL (1.5-8.5); NEUTROPHILS % 68.9 % (36.0-66.0); PLATELET COUNT, AUTOMATED 234 10^3/uL (150-450); RED BLOOD COUNT 4.53 10^6/uL (4.30-6.10); WHITE BLOOD COUNT 9.9 10^3/uL (4.0-10.0)
[2022-05-28 07:52] LABS: BLOOD UREA NITROGEN 21 MG/DL (9-23); CALCIUM LEVEL 8.3 MG/DL (8.5-10.1); CARBON DIOXIDE LEVEL 27 MMOL/L (20-31); CHLORIDE LEVEL 100 MMOL/L (98-107); CREATININE FOR GFR 0.59 MG/DL (0.70-1.30); GLOMERULAR FILTRATION RATE > 60.0 (>56); GLUCOSE, FASTING 111 MG/DL (60-100); POTASSIUM SERUM 4.1 MMOL/L (3.5-5.1); SODIUM LEVEL 133 MMOL/L (136-145)
[2022-05-28] MEDS: SENOKOT S TAB GT SCH ×2 (07:57→20:17)
[2022-05-28] MEDS: IPRATROPIUM 0.5MG/ALBUTEROL 2.5MG INH SOL UD 3ML (DUONEB) NEB SCH ×4 (07:57→19:52)
[2022-05-28] MEDS: MIRALAX *UNIT DOSE* 17GM PACKET GT SCH ×2 (07:57→20:17)
[2022-05-28] MEDS: predniSONE 20 MG TAB PO SCH (08:14)
[2022-05-28] MEDS: FUROSEMIDE 20 MG TAB GT SCH (08:15)
[2022-05-28] MEDS: CHLORHEXIDINE GLUCONATE 0.12 % 15ML UDC (PERIDEX ORAL RINSE) MT SCH ×2 (08:15→20:16)
[2022-05-28] MEDS: FAMOTIDINE 20 MG TAB PO SCH (08:15)
[2022-05-28] MEDS: EZETIMIBE 10MG TABLET (ZETIA) GT SCH (08:15)
[2022-05-28] MEDS ORDERED: MIRA1POW3 GT (10:26)
[2022-05-28] MEDS ORDERED: PERI12LIQ MT (10:26)
[2022-05-28] MEDS ORDERED: PRED10TA2 PO (10:26)
[2022-05-28] MEDS ORDERED: FAMO40TA3 PO (10:26)
[2022-05-28] MEDS: PANTOPRAZOLE 40MG VIAL IV SCH (17:38)
[2022-05-28] MEDS: ATORVASTATIN 20 MG TAB GT SCH (20:16)
[2022-05-28] MEDS: ENOXAPARIN 40MG/0.4ML SYRINGE (J1650 PER 10MG) SC SCH (20:16)
[2022-05-28] MEDS: LEVEMIR (INSULIN DETEMIR) 1 UNITS/0.01ML SC SCH (20:17)
[2022-05-29] VITALS (9 sets, daily range): BP systolic 105–113; BP diastolic 53; O2SAT 92–97
[2022-05-29] MEDS ORDERED: CALCIUM CARBONATE 500 MG CHEW U/D PO ONE (03:15)
[2022-05-29] MEDS: IPRATROPIUM 0.5MG/ALBUTEROL 2.5MG INH SOL UD 3ML (DUONEB) NEB SCH (05:01)
[2022-05-29 05:38] LABS: HEMATOCRIT 40.6 % (42.0-52.0); HEMOGLOBIN 13.5 g/dl (13.5-17.5); MEAN CORPUSCULAR HGB CONC 33.3 g/dl (32.0-36.5); MEAN CORPUSCULAR VOLUME 93.3 fl (80.0-96.0); PLATELET COUNT, AUTOMATED 274 10^3/uL (150-450); RED BLOOD COUNT 4.35 10^6/uL (4.30-6.10); WHITE BLOOD COUNT 9.7 10^3/uL (4.0-10.0)
[2022-05-29 06:03] LABS: BLOOD UREA NITROGEN 20 MG/DL (9-23); CALCIUM LEVEL 8.3 MG/DL (8.5-10.1); CARBON DIOXIDE LEVEL 27 MMOL/L (20-31); CHLORIDE LEVEL 99 MMOL/L (98-107); CREATININE FOR GFR 0.57 MG/DL (0.70-1.30); GLOMERULAR FILTRATION RATE > 60.0 (>56); GLUCOSE, FASTING 123 MG/DL (60-100); POTASSIUM SERUM 3.9 MMOL/L (3.5-5.1); SODIUM LEVEL 134 MMOL/L (136-145)
[2022-05-29 06:04] LABS: ATYPICAL LYMPH 2 % (0-5); EOSINOPHILS 1 % (0-3); LYMPHOCYTES 26 % (16-44); MONOCYTES 5 % (0-5); NEUTROPHILS 65 % (28-66); PLATELET ESTIMATE NORMAL (NORMAL)
[2022-05-29] MEDS: INSULIN LISPRO (NovoLOG) PER UNIT SC SCH (07:30)
[2022-05-29] MEDS: FUROSEMIDE 20 MG TAB GT SCH (08:22)
[2022-05-29] MEDS: SENOKOT S TAB GT SCH (08:23)
[2022-05-29] MEDS: MIRALAX *UNIT DOSE* 17GM PACKET GT SCH (08:23)
[2022-05-29] MEDS: FAMOTIDINE 20 MG TAB PO SCH (08:41)
[2022-05-29] MEDS: CHLORHEXIDINE GLUCONATE 0.12 % 15ML UDC (PERIDEX ORAL RINSE) MT SCH (08:41)
[2022-05-29] MEDS: EZETIMIBE 10MG TABLET (ZETIA) GT SCH (08:42)
[2022-05-29] MEDS ORDERED: predniSONE 10MG TAB PO SCH (09:00)
[2022-05-29] MEDS ORDERED: IPRA0.00 NEB (09:08)
== END 2022-05-29 14:02 | disposition home health service (06) | DRG 4 ==
LOC: M ED 10:39 → M SDC 10:40 → M ICU 14:05 → M PCU 05-23 16:23
PROVIDERS: ADMIT Otolaryngology; ATTEND Internal Medicine
PROC: 0CBS8ZX Excision of Larynx, Via Natural or Artificial Opening Endoscopic, Diagnostic (ICD-10-PCS; 2022-05-14)
PROC: 0BH17EZ Insertion of Endotracheal Airway into Trachea, Via Natural or Artificial Opening (ICD-10-PCS; 2022-05-14)
PROC: 5A1955Z Respiratory Ventilation, Greater than 96 Consecutive Hours (ICD-10-PCS; 2022-05-20)
PROC: 0B110F4 Bypass Trachea to Cutaneous with Tracheostomy Device, Open Approach (ICD-10-PCS; principal; 2022-05-20 15:00)
DX: J96.21 Acute and chronic respiratory failure with hypoxia (principal); E87.29 Other acidosis; E66.2 Morbid (severe) obesity with alveolar hypoventilation; E87.3 Alkalosis; J38.7 Other diseases of larynx; R73.03 Prediabetes; I10 Essential (primary) hypertension; J44.9 Chronic obstructive pulmonary disease, unspecified; Z99.81 Dependence on supplemental oxygen; Z87.891 Personal history of nicotine dependence; Z79.899 Other long term (current) drug therapy; E78.5 Hyperlipidemia, unspecified; J02.0 Streptococcal pharyngitis; T81.82XA Emphysema (subcutaneous) resulting from a procedure, initial encounter

== ENCOUNTER 2022-05-29 23:40 | Emergency (ER) | payer MEDICARE ==
[~2022-05-29 23:40] MED LIST changes: +ATOR80TA59 PO; +EZET10TA21 PO; +FAMO40TA3 PO; +FLUT1INH3 INH; +IPRA0.00 NEB; +MIRA1POW3 GT; +PERI12LIQ MT; +PRED10TA2 PO
[2022-05-30 00:16] VITALS: BP 108/51
== END 2022-05-30 00:38 | disposition home or self-care (01) ==
LOC: M ED 23:40 → EDBD 23:40 → M ED 05-30 00:38
DX: J95.03 Malfunction of tracheostomy stoma (principal); I10 Essential (primary) hypertension; J44.9 Chronic obstructive pulmonary disease, unspecified; K21.9 Gastro-esophageal reflux disease without esophagitis; E78.5 Hyperlipidemia, unspecified; K59.00 Constipation, unspecified; Z99.81 Dependence on supplemental oxygen; Z79.899 Other long term (current) drug therapy

== ENCOUNTER 2022-05-31 21:51 | Emergency (ER) | payer MEDICARE ==
[~2022-05-31] VITALS: Ht 172.7 cm; Wt 103.2 kg
[2022-05-31 23:51] VITALS: BP 106/67
== END 2022-06-01 00:05 | disposition home or self-care (01) ==
LOC: M ED 21:51
DX: J95.03 Malfunction of tracheostomy stoma (principal); F17.200 Nicotine dependence, unspecified, uncomplicated; Z79.899 Other long term (current) drug therapy

== ENCOUNTER → 2022-06-11 | Outpatient (REF) | payer MEDICARE, OTHER ==
[2022-06-11 18:15] LABS: BLOOD UREA NITROGEN 12 MG/DL (9-23); CALCIUM LEVEL 8.8 MG/DL (8.5-10.1); CARBON DIOXIDE LEVEL 27 MMOL/L (20-31); CHLORIDE LEVEL 102 MMOL/L (98-107); CREATININE FOR GFR 0.67 MG/DL (0.70-1.30); GLOMERULAR FILTRATION RATE > 60.0 (>56); GLUCOSE, FASTING 97 MG/DL (60-100); POTASSIUM SERUM 4.6 MMOL/L (3.5-5.1); SODIUM LEVEL 135 MMOL/L (136-145)
== END ==
LOC: M LAB REF 17:21
PROVIDERS: ATTEND Pediatrics
DX: I10 Essential (primary) hypertension (principal)

== ENCOUNTER → 2022-06-20 | Outpatient (REF) | payer MEDICARE | LOC: M LAB REF 16:14 | PROVIDERS: ATTEND Physician Assistant Medical | DX: Z93.0 Tracheostomy status (principal) ==

== ENCOUNTER → 2022-06-26 | Outpatient (CLI) | payer MEDICARE, OTHER ==
[~2022-06-26] MED LIST changes: +BARIUM SULFATE 700 MG TABLET (E-Z-DISK) As Ordered ONE; +E-Z-PAQUE 96% w/w SUSP 176GM BTL As Ordered ONE; +VARIBAR NECTAR 40% w/v 240ML SUSP BTL As Ordered ONE; +VARIBAR PUDDING 40% w/v 230ML TUBE As Ordered ONE
== END ==
LOC: M RAD 13:21
PROVIDERS: ATTEND Otolaryngology
DX: Q31.3 Laryngocele (principal); Z43.0 Encounter for attention to tracheostomy

== ENCOUNTER → 2022-07-23 | Outpatient (REF) | payer MEDICARE, OTHER ==
[~2022-07-23] MED LIST changes: -BARIUM SULFATE 700 MG TABLET (E-Z-DISK) As Ordered ONE; -E-Z-PAQUE 96% w/w SUSP 176GM BTL As Ordered ONE; -VARIBAR NECTAR 40% w/v 240ML SUSP BTL As Ordered ONE; -VARIBAR PUDDING 40% w/v 230ML TUBE As Ordered ONE
== END ==
LOC: M LAB REF 17:26
PROVIDERS: ATTEND Otolaryngology
DX: Z93.0 Tracheostomy status (principal)

== ENCOUNTER → 2022-07-30 | Outpatient (REF) | payer MEDICARE, OTHER ==
[2022-07-30 17:26] LABS: BLOOD UREA NITROGEN 25 MG/DL (9-23); CALCIUM LEVEL 9.1 MG/DL (8.5-10.1); CARBON DIOXIDE LEVEL 25 MMOL/L (20-31); CHLORIDE LEVEL 100 MMOL/L (98-107); CREATININE FOR GFR 0.89 MG/DL (0.70-1.30); GLOMERULAR FILTRATION RATE > 60.0 (>56); GLUCOSE, FASTING 99 MG/DL (60-100); POTASSIUM SERUM 4.6 MMOL/L (3.5-5.1); SODIUM LEVEL 136 MMOL/L (136-145)
== END ==
LOC: M LAB REF 16:22
PROVIDERS: ATTEND Pediatrics
DX: I10 Essential (primary) hypertension (principal)

== ENCOUNTER → 2022-08-14 | Outpatient (CLI) | payer MEDICARE, OTHER ==
[~2022-08-14] MED LIST changes: +ISOVUE-370 76% 100ML VIAL As Ordered ONE
== END ==
LOC: M RAD 14:03
PROVIDERS: ATTEND Otolaryngology
DX: Q31.3 Laryngocele (principal); Z93.0 Tracheostomy status; J43.9 Emphysema, unspecified
CPT/HCPCS: 70491; Q9967

== ENCOUNTER → 2022-10-08 | Outpatient (REF) | payer MEDICARE, OTHER, MEDICAID ==
[~2022-10-08] MED LIST changes: -ISOVUE-370 76% 100ML VIAL As Ordered ONE
[2022-10-08 17:32] LABS: HEMOGLOBIN A1c 7.8 % (4.0-6.0)
[2022-10-08 17:49] LABS: ALBUMIN 3.8 G/DL (3.2-5.2); ALKALINE PHOSPHATASE 112 U/L (46-116); ALT/SGPT 45 U/L (7.0-40); AST/SGOT 18 U/L (<34); BILIRUBIN,TOTAL 0.3 MG/DL (0.3-1.2); BLOOD UREA NITROGEN 29 MG/DL (9-23); CALCIUM LEVEL 9.7 MG/DL (8.5-10.1); CARBON DIOXIDE LEVEL 24 MMOL/L (20-31); CHLORIDE LEVEL 101 MMOL/L (98-107); CHOLESTEROL LEVEL 237 MG/DL (<200); CHOLESTEROL RISK RATIO 5.05 (<5); CREATININE FOR GFR 1.13 MG/DL (0.70-1.30); GLOMERULAR FILTRATION RATE > 60.0 (>56); GLUCOSE, FASTING 128 MG/DL (60-100); HDL CHOLESTEROL 46.9 MG/DL (>40); LDL CHOLESTEROL 120.7 MG/DL (<100); NON-HDL-C 190.1 MG/DL; POTASSIUM SERUM 4.5 MMOL/L (3.5-5.1); PROSTATIC SPECIFIC AG MONITOR 0.25 NG/ML (< 4.00); SODIUM LEVEL 136 MMOL/L (136-145); TOTAL PROTEIN 7.4 G/DL (5.7-8.2); TRIGLYCERIDES LEVEL 347 MG/DL (<150)
== END ==
LOC: M LAB REF 16:36
PROVIDERS: ATTEND Pediatrics
DX: E11.9 Type 2 diabetes mellitus without complications (principal); Z12.5 Encounter for screening for malignant neoplasm of prostate

== ENCOUNTER → 2022-12-04 | Outpatient (CLI) | payer MEDICARE, MEDICAID ==
[~2022-12-04] MED LIST changes: +ISOVUE-370 76% 100ML VIAL ONE
== END ==
LOC: M PLAIMG 09:20
PROVIDERS: ATTEND Otolaryngology
DX: Q31.3 Laryngocele (principal); J43.2 Centrilobular emphysema; Z93.0 Tracheostomy status
CPT/HCPCS: 70491; Q9967

== ENCOUNTER → 2023-04-21 | Outpatient (REF) | payer MEDICARE, MEDICAID ==
[~2023-04-21] MED LIST changes: -ISOVUE-370 76% 100ML VIAL ONE; -MIRA1POW3 GT; +MIRA33506 GT
[2023-04-21 17:34] LABS: HEMOGLOBIN A1c 7.3 % (4.0-6.0)
[2023-04-21 17:47] LABS: BLOOD UREA NITROGEN 20 MG/DL (9-23); CALCIUM LEVEL 8.9 MG/DL (8.3-10.6); CARBON DIOXIDE LEVEL 26 MMOL/L (20-31); CHLORIDE LEVEL 105 MMOL/L (98-107); CHOLESTEROL LEVEL 189 MG/DL (<200); CHOLESTEROL RISK RATIO 4.19 (<5); CREATININE FOR GFR 0.83 MG/DL (0.70-1.30); GLOMERULAR FILTRATION RATE > 60.0 (>49); GLUCOSE, FASTING 122 MG/DL (74-106); HDL CHOLESTEROL 45.1 MG/DL (>40); LDL CHOLESTEROL 111.1 MG/DL (<100); NON-HDL-C 143.9 MG/DL; POTASSIUM SERUM 4.7 MMOL/L (3.5-5.1); SODIUM LEVEL 137 MMOL/L (136-145); TRIGLYCERIDES LEVEL 164 MG/DL (<150)
== END ==
LOC: M LAB REF 16:15
PROVIDERS: ATTEND Pediatrics
DX: E11.9 Type 2 diabetes mellitus without complications (principal); E78.5 Hyperlipidemia, unspecified; I10 Essential (primary) hypertension

== ENCOUNTER → 2023-04-23 | Outpatient (CLI) | payer MEDICARE, MEDICAID | LOC: M RAD 12:48 | PROVIDERS: ATTEND Internal Medicine Pulmonary Disease | DX: Z12.2 Encounter for screening for malignant neoplasm of respiratory organs (principal); Z87.891 Personal history of nicotine dependence ==

== ENCOUNTER → 2023-04-27 | Outpatient (CLI) | payer MEDICARE, MEDICAID ==
[~2023-04-27] MED LIST changes: +BARIUM SULFATE 700 MG TABLET (E-Z-DISK) As Ordered ONE; +E-Z-PAQUE 96% w/w SUSP 176GM BTL As Ordered ONE; +VARIBAR NECTAR 40% w/v 240ML SUSP BTL As Ordered ONE; +VARIBAR PUDDING 40% w/v 230ML TUBE As Ordered ONE
== END ==
LOC: M RAD 12:46
PROVIDERS: ATTEND Otolaryngology
DX: Z93.0 Tracheostomy status (principal); Q31.3 Laryngocele

== ENCOUNTER → 2023-06-15 | Outpatient (CLI) | payer MEDICARE, MEDICAID ==
[~2023-06-15] MED LIST changes: -BARIUM SULFATE 700 MG TABLET (E-Z-DISK) As Ordered ONE; -E-Z-PAQUE 96% w/w SUSP 176GM BTL As Ordered ONE; -VARIBAR NECTAR 40% w/v 240ML SUSP BTL As Ordered ONE; -VARIBAR PUDDING 40% w/v 230ML TUBE As Ordered ONE
== END ==
LOC: M PLARAD 13:04
PROVIDERS: ATTEND Internal Medicine Pulmonary Disease
DX: R91.8 Other nonspecific abnormal finding of lung field (principal)
CPT/HCPCS: 78815; A9552

== ENCOUNTER → 2023-08-25 | Outpatient (REF) | payer MEDICARE, MEDICAID | LOC: M LAB REF 17:32 | PROVIDERS: ATTEND Physician Assistant Medical | DX: Z93.0 Tracheostomy status (principal) ==

== ENCOUNTER → 2023-09-21 | Outpatient (CLI) | payer MEDICARE, MEDICAID | LOC: M RAD 12:58 | PROVIDERS: ATTEND Internal Medicine Pulmonary Disease | DX: R91.8 Other nonspecific abnormal finding of lung field (principal) ==

== ENCOUNTER → 2023-11-12 | Outpatient (CLI) | payer MEDICARE, MEDICAID ==
[~2023-11-12] MED LIST changes: +E-Z-GAS II EFFERVESCENT PACKET (SODIUM BICARB./CITRIC ACID/SIMETHICONE) As Ordered ONE; +E-Z-HD 98% w/w 340GM SUSP BTL As Ordered ONE; +E-Z-PAQUE 96% w/w SUSP 176GM BTL As Ordered ONE; +GASTROGRAFIN SOLUTION 30ML As Ordered ONE
== END ==
LOC: M RAD 08:56
PROVIDERS: ATTEND Physician Assistant Medical
DX: R13.10 Dysphagia, unspecified (principal)
CPT/HCPCS: 74220; Q9963

== ENCOUNTER → 2023-11-17 | Outpatient (REF) | payer MEDICARE, MEDICAID ==
[~2023-11-17] MED LIST changes: -E-Z-GAS II EFFERVESCENT PACKET (SODIUM BICARB./CITRIC ACID/SIMETHICONE) As Ordered ONE; -E-Z-HD 98% w/w 340GM SUSP BTL As Ordered ONE; -E-Z-PAQUE 96% w/w SUSP 176GM BTL As Ordered ONE; -GASTROGRAFIN SOLUTION 30ML As Ordered ONE
[2023-11-17 17:58] LABS: CREATININE, URINE 49.8 MG/DL
[2023-11-17 19:36] LABS: HEMOGLOBIN A1c 7.7 % (4.0-6.0)
[2023-11-17 19:37] LABS: PSA SCREENING 0.21 NG/ML (< 4.00)
[2023-11-17 19:41] LABS: ALBUMIN 3.2 G/DL (3.2-5.2); ALKALINE PHOSPHATASE 123 U/L (46-116); ALT/SGPT 25 U/L (7.0-40); AST/SGOT 12 U/L (<34); BILIRUBIN,TOTAL 0.3 MG/DL (0.3-1.2); BLOOD UREA NITROGEN 18 MG/DL (9-23); CALCIUM LEVEL 9.4 MG/DL (8.3-10.6); CARBON DIOXIDE LEVEL 30 MMOL/L (20-31); CHLORIDE LEVEL 102 MMOL/L (98-107); CHOLESTEROL LEVEL 205 MG/DL (<200); CHOLESTEROL RISK RATIO 5.57 (<5); CREATININE FOR GFR 0.84 MG/DL (0.70-1.30); GLOMERULAR FILTRATION RATE > 60.0 (>49); GLUCOSE, FASTING 178 MG/DL (74-106); HDL CHOLESTEROL 36.8 MG/DL (>40); LDL CHOLESTEROL 124.2 MG/DL (<100); NON-HDL-C 168.2 MG/DL; POTASSIUM SERUM 4.5 MMOL/L (3.5-5.1); SODIUM LEVEL 137 MMOL/L (136-145); THYROID STIMULATING HORMONE 2.635 uIU/ML (0.55-4.78); TRIGLYCERIDES LEVEL 220 MG/DL (<150)
== END ==
LOC: M LAB REF 16:10
PROVIDERS: ATTEND Pediatrics
DX: E11.9 Type 2 diabetes mellitus without complications (principal); Z12.5 Encounter for screening for malignant neoplasm of prostate
CPT/HCPCS: 80053; 80061; 82043; 83036; 84443; G0103

== ENCOUNTER → 2023-11-27 | Outpatient (REF) | payer MEDICARE, MEDICAID ==
[2023-11-27 18:01] LABS: BLOOD UREA NITROGEN 15 MG/DL (9-23); CARBON DIOXIDE LEVEL 33 MMOL/L (20-31); CHLORIDE LEVEL 98 MMOL/L (98-107); CREATININE FOR GFR 0.85 MG/DL (0.70-1.30); GLOMERULAR FILTRATION RATE > 60.0 (>49); GLUCOSE, FASTING 135 MG/DL (74-106); POTASSIUM SERUM 4.6 MMOL/L (3.5-5.1); SODIUM LEVEL 136 MMOL/L (136-145)
== END ==
LOC: M LAB REF 16:40
PROVIDERS: ATTEND Pediatrics
DX: I10 Essential (primary) hypertension (principal)

== ENCOUNTER 2024-03-30 15:13 | Emergency (ER) | payer MEDICARE, MEDICAID ==
[~2024-03-30] VITALS: Ht 172.7 cm; Wt 98.4 kg
[2024-03-30 17:00] LABS: BASO # 0.1 10^3/uL (0.0-0.2); BASO % 0.5 % (0.0-1.0); EOS # 0.3 10^3/uL (0.0-0.5); EOS % 2.9 % (0.0-3.0); HEMATOCRIT 44.8 % (42.0-52.0); HEMOGLOBIN 14.8 g/dl (13.5-17.5); LYMPH # 1.8 10^3/uL (1.5-5.0); LYMPH % 19.9 % (24.0-44.0); MEAN CORPUSCULAR HEMOGLOBIN 30.1 pg (27.0-33.0); MEAN CORPUSCULAR VOLUME 91.1 fl (80.0-96.0); MONO # 0.7 10^3/uL (0.0-0.8); MONO % 7.3 % (2.0-8.0); NEUTROPHILS # 6.3 10^3/uL (1.5-8.5); NEUTROPHILS % 68.9 % (36.0-66.0); PLATELET COUNT, AUTOMATED 228 10^3/uL (150-450); RED BLOOD COUNT 4.92 10^6/uL (4.30-6.10); WHITE BLOOD COUNT 9.2 10^3/uL (4.0-10.0)
[2024-03-30 17:06] LABS: ERYTHROCYTE SEDIMENTATION RATE 67 mm/hr (0-20)
[2024-03-30 17:14] LABS: BLOOD UREA NITROGEN 30 MG/DL (9-23); C REACTIVE PROTEIN QUANTITATIV 2.76 MG/DL (<1.0); CALCIUM LEVEL 9.1 MG/DL (8.3-10.6); CARBON DIOXIDE LEVEL 28 MMOL/L (20-31); CHLORIDE LEVEL 102 MMOL/L (98-107); CREATININE FOR GFR 1.12 MG/DL (0.70-1.30); GLOMERULAR FILTRATION RATE > 60.0 (>49); GLUCOSE, FASTING 152 MG/DL (74-106); POTASSIUM SERUM 4.3 MMOL/L (3.5-5.1); SODIUM LEVEL 140 MMOL/L (136-145)
[2024-03-30 18:35] LABS: PROCALCITONIN 0.18 ng/ml
[2024-03-30] MEDS ORDERED: CEPH500C PO (19:08)
[2024-03-30 19:18] VITALS: BP 112/58; TEMP 97.2; O2SAT 93
== END 2024-03-30 19:22 | disposition home or self-care (01) ==
LOC: M ED 15:13
DX: L03.116 Cellulitis of left lower limb (principal); L03.115 Cellulitis of right lower limb; I10 Essential (primary) hypertension; E11.9 Type 2 diabetes mellitus without complications; J44.9 Chronic obstructive pulmonary disease, unspecified; E78.5 Hyperlipidemia, unspecified; Z87.891 Personal history of nicotine dependence; Z79.52 Long term (current) use of systemic steroids; Z79.02 Long term (current) use of antithrombotics/antiplatelets; Z79.811 Long term (current) use of aromatase inhibitors; Z79.899 Other long term (current) drug therapy; Z79.2 Long term (current) use of antibiotics

== ENCOUNTER → 2024-04-01 | Outpatient (CLI) | payer MEDICARE, MEDICAID ==
[~2024-04-01] MED LIST changes: +CEPH500C PO
== END ==
LOC: M RAD 13:40
PROVIDERS: ATTEND Emergency Medicine
DX: M79.89 Other specified soft tissue disorders (principal)

== ENCOUNTER → 2024-04-04 | Outpatient (CLI) | payer MEDICARE, MEDICAID | LOC: M PLAIMG 13:13 | PROVIDERS: ATTEND Internal Medicine Pulmonary Disease | DX: R91.8 Other nonspecific abnormal finding of lung field (principal); Z93.0 Tracheostomy status; J43.2 Centrilobular emphysema; I70.0 Atherosclerosis of aorta ==

== ENCOUNTER → 2024-04-20 | Outpatient (REF) | payer MEDICARE, MEDICAID ==
[2024-04-21 13:04] LABS: CHOLESTEROL RISK RATIO 4.83 (<5); HDL CHOLESTEROL 34.1 MG/DL (>40); LDL CHOLESTEROL 104.9 MG/DL (<100); NON-HDL-C 130.9 MG/DL
[2024-04-21 13:23] LABS: HEMOGLOBIN A1c 7.9 % (4.0-6.0)
== END ==
LOC: M LAB REF 11:47
PROVIDERS: ATTEND Pediatrics
DX: E11.9 Type 2 diabetes mellitus without complications (principal); E78.5 Hyperlipidemia, unspecified; R60.0 Localized edema; R06.02 Shortness of breath

== ENCOUNTER 2024-05-06 15:19 | Inpatient (IN) | payer MEDICARE, MEDICAID ==
[~2024-05-06] VITALS: Ht 165.1 cm; Wt 93.5 kg
[2024-05-06] VITALS (13 sets, daily range): BP systolic 84–107; BP diastolic 50–59; O2SAT 97–100
[~2024-05-06 15:19] MED LIST changes: -ALBU2.5V10; +ALBU2.5V10 NEB; -ALBU8.5H; +ALBU8.5H INH
[2024-05-06 15:49] LABS: BASO % 0.2 % (0.0-1.0); HEMATOCRIT 45.4 % (42.0-52.0); HEMOGLOBIN 14.5 g/dl (13.5-17.5); LYMPH # 1.1 10^3/uL (1.5-5.0); LYMPH % 5.7 % (24.0-44.0); MEAN CORPUSCULAR HGB CONC 31.9 g/dl (32.0-36.5); MONO # 1.6 10^3/uL (0.0-0.8); MONO % 8.4 % (2.0-8.0); NEUTROPHILS % 85.1 % (36.0-66.0); PLATELET COUNT, AUTOMATED 283 10^3/uL (150-450); RED BLOOD COUNT 4.83 10^6/uL (4.30-6.10); WHITE BLOOD COUNT 18.8 10^3/uL (4.0-10.0)
[2024-05-06 15:57] LABS: ABG BASE EXCESS -2.1 (-2.0-2.0); ABG HCO3 27.9 MMOL/L (22.0-26.0); ABG O2 SATURATION 98.8 % (95.0-99.0); ABG PARTIAL PRESSURE O2 151.1 mmHg (75.0-100.0); ABG STANDARD HCO3 22.8 MMOL/L. (22.0-26.0); ABG TOTAL CO2 30.1 MMOL/L (23.0-31.0)
[2024-05-06 15:58] LABS: ALBUMIN 3.4 G/DL (3.2-5.2); ALKALINE PHOSPHATASE 105 U/L (40-129); ALT/SGPT 28 U/L (7.0-40); AST/SGOT 22 U/L (<34); BILIRUBIN,DIRECT 0.4 MG/DL (<0.4); BILIRUBIN,TOTAL 0.9 MG/DL (0.3-1.2); BLOOD UREA NITROGEN 17 MG/DL (9-23); CALCIUM LEVEL 8.9 MG/DL (8.3-10.6); CARBON DIOXIDE LEVEL 29 MMOL/L (20-31); CHLORIDE LEVEL 98 MMOL/L (98-107); CREATININE FOR GFR 0.84 MG/DL (0.70-1.30); GLOMERULAR FILTRATION RATE > 60.0 (>49); GLUCOSE, FASTING 185 MG/DL (74-106); POTASSIUM SERUM 4.7 MMOL/L (3.5-5.1); SODIUM LEVEL 135 MMOL/L (136-145); TOTAL PROTEIN 8.1 G/DL (5.7-8.2)
[2024-05-06 16:02] LABS: THYROID STIMULATING HORMONE 2.749 uIU/ML (0.55-4.78)
[2024-05-06 16:06] LABS: ABG PARTIAL PRESSURE CO2 72.7 mmHg (35.0-45.0); ABG pH (ARTERIAL) 7.202 UNITS (7.350-7.450)
[2024-05-06] MEDS: IPRATROPIUM 0.5MG/ALBUTEROL 2.5MG INH SOL UD 3ML (DUONEB) NEB ONE (17:32)
[2024-05-06] MEDS: ALBUTEROL SULFATE 2.5MG/0.5ML INH NEB SOLN NEB ONE (17:32)
[2024-05-06 17:36] LABS: ABG BASE EXCESS -3.1 (-2.0-2.0); ABG HCO3 27.1 MMOL/L (22.0-26.0); ABG O2 SATURATION 87.1 % (95.0-99.0); ABG PARTIAL PRESSURE O2 64.2 mmHg (75.0-100.0); ABG STANDARD HCO3 21.7 MMOL/L. (22.0-26.0); ABG TOTAL CO2 29.4 MMOL/L (23.0-31.0)
[2024-05-06 17:37] LABS: ABG pH (ARTERIAL) 7.188 UNITS (7.350-7.450)
[2024-05-06] MEDS ORDERED: FARX1TAB3 PO (17:51)
[2024-05-06] MEDS ORDERED: SEMA0.257 INJ (17:51)
[2024-05-06] MEDS ORDERED: LISI10TA22 PO (17:51)
[2024-05-06] MEDS ORDERED: METF10004 PO (17:51)
[2024-05-06] MEDS ORDERED: ASPI-226 PO (17:51)
[2024-05-06] MEDS ORDERED: MIDAZOLAM INJ 2MG/2ML VIAL As Ordered ONE (18:00)
[2024-05-06] MEDS ORDERED: HOME MED LIST COMPLETE! XX SCH (18:00)
[2024-05-06] MEDS ORDERED: fentaNYL 100 MCG/2 ML INJECTION As Ordered ONE (18:04)
[2024-05-06] MEDS: MIDAZOLAM INJ 2MG/2ML VIAL IV STA (18:18)
[2024-05-06] MEDS: MIDAZOLAM INJ 2MG/2ML VIAL IV ONE (18:18)
[2024-05-06] MEDS: fentaNYL 100 MCG/2 ML INJECTION IV ONE (18:19)
[2024-05-06] MEDS: FUROSEMIDE 40MG/4ML VIAL IV ONE (19:17)
[2024-05-06] MEDS: MIDAZOLAM INJ 2MG/2ML VIAL IV PRN (19:35)
[2024-05-06 19:41] LABS: VENOUS BASE EXCESS -2.4 (-2.0-2.0); VENOUS HCO3 30.2 MMOL/L (23.0-27.0); VENOUS O2 SATURATION 83.9 % (60.0-80.0); VENOUS PARTIAL PRESSURE CO2 97.6 mmHg (38.0-50.0); VENOUS PARTIAL PRESSURE O2 64.7 mmHg (30.0-50.0); VENOUS PH 7.109 UNITS (7.330-7.430); VENOUS STANDARD HCO3 22.1 MMOL/L; VENOUS TOTAL CO2 33.2 MMOL/L (24.0-28.0)
[2024-05-06] MEDS: FORMOTEROL FUMARATE 20 MCG/2 ML INHALATION SOLUTION (PERFOROMIST) INH SCH (19:43)
[2024-05-06] MEDS: GLYCOPYRROLATE INJ 0.2 MG/ML 2 ML VIAL NEB SCH (19:44)
[2024-05-06] MEDS: propofoL 1,000 MG in IV 1 EA IV SCH (20:26)
[2024-05-06] MEDS: AZITHROMYCIN INJ 500 MG, VIAL MATE ADAPTER 1 EACH in NS 250 ML IV SCH (21:51)
[2024-05-06] MEDS: methylPREDNISolone 40MG 1ML VIAL IV SCH (21:54)
[2024-05-06] MEDS: cefTRIAXone SOD 1 GM in DEXTROSE 5% (D5W) ADV/MINI-BAG 50 ML IV SCH (23:56)
[2024-05-07] VITALS (55 sets, daily range): BP systolic 83–145; BP diastolic 50–96; TEMP 97.1–98.7; O2SAT 85–100
[2024-05-07 02:46] LABS: ABG BASE EXCESS -2.9 (-2.0-2.0); ABG HCO3 30.9 MMOL/L (22.0-26.0); ABG O2 SATURATION 97.7 % (95.0-99.0); ABG PARTIAL PRESSURE O2 137.2 mmHg (75.0-100.0); ABG TOTAL CO2 34.4 MMOL/L (23.0-31.0)
[2024-05-07 02:49] LABS: ABG PARTIAL PRESSURE CO2 114.6 mmHg (35.0-45.0); ABG pH (ARTERIAL) 7.049 UNITS (7.350-7.450)
[2024-05-07] MEDS ORDERED: FENTANYL DRIP LOCK BOX KEY 1 EACH XX PRN (02:50)
[2024-05-07] MEDS ORDERED: SODIUM BICARBONATE 8.4% INJ 50ML SYRINGE As Ordered ONE (02:54)
[2024-05-07] MEDS: SODIUM BICARBONATE 8.4% INJ 50ML SYRINGE IV STA (03:03)
[2024-05-07] MEDS: IPRATROPIUM 0.02% SOLN 0.5MG 2.5ML NEB INH PRN (03:28)
[2024-05-07] MEDS: LEVALBUTEROL 1.25MG 0.5ML CONCENTRATE NEB INH PRN (03:28)
[2024-05-07] MEDS: fentaNYL CITRATE/NaCl 1,000 MCG in IV 1 EA IV SCH (03:33)
[2024-05-07] MEDS: dexmedeTOMidine 200 MCG in IV 1 EA IV SCH (03:36)
[2024-05-07 04:05] LABS: ABG HCO3 29.5 MMOL/L (22.0-26.0); ABG O2 SATURATION 97.6 % (95.0-99.0); ABG PARTIAL PRESSURE CO2 53.3 mmHg (35.0-45.0); ABG PARTIAL PRESSURE O2 102.1 mmHg (75.0-100.0); ABG STANDARD HCO3 27.1 MMOL/L. (22.0-26.0); ABG TOTAL CO2 31.1 MMOL/L (23.0-31.0); ABG pH (ARTERIAL) 7.361 UNITS (7.350-7.450)
[2024-05-07] MEDS: SODIUM BICARBONATE 100 MEQ in D5W 1,000 ML IV SCH (04:30)
[2024-05-07] MEDS: MIDAZOLAM INJ 2MG/2ML VIAL IV ONE (04:35)
[2024-05-07 05:04] LABS: BASO % 0.1 % (0.0-1.0); HEMOGLOBIN 12.4 g/dl (13.5-17.5); LYMPH # 0.6 10^3/uL (1.5-5.0); LYMPH % 3.6 % (24.0-44.0); MEAN CORPUSCULAR HEMOGLOBIN 29.7 pg (27.0-33.0); MEAN CORPUSCULAR HGB CONC 31.8 g/dl (32.0-36.5); MEAN CORPUSCULAR VOLUME 93.3 fl (80.0-96.0); MONO # 0.6 10^3/uL (0.0-0.8); MONO % 3.9 % (2.0-8.0); NEUTROPHILS # 14.2 10^3/uL (1.5-8.5); NEUTROPHILS % 91.9 % (36.0-66.0); PLATELET COUNT, AUTOMATED 211 10^3/uL (150-450); RED BLOOD COUNT 4.18 10^6/uL (4.30-6.10); WHITE BLOOD COUNT 15.5 10^3/uL (4.0-10.0)
[2024-05-07 05:33] LABS: ALBUMIN 2.7 G/DL (3.2-5.2); ALKALINE PHOSPHATASE 91 U/L (40-129); ALT/SGPT 23 U/L (7.0-40); AST/SGOT 17 U/L (<34); BILIRUBIN,TOTAL 0.4 MG/DL (0.3-1.2); BLOOD UREA NITROGEN 29 MG/DL (9-23); CALCIUM LEVEL 8.5 MG/DL (8.3-10.6); CARBON DIOXIDE LEVEL 29 MMOL/L (20-31); CHLORIDE LEVEL 98 MMOL/L (98-107); CREATININE FOR GFR 1.21 MG/DL (0.70-1.30); GLOMERULAR FILTRATION RATE > 60.0 (>49); GLUCOSE, FASTING 279 MG/DL (74-106); MAGNESIUM LEVEL 2.3 MG/DL (1.8-2.4); PHOSPHORUS LEVEL 3.8 MG/DL (2.4-5.1); POTASSIUM SERUM 5.2 MMOL/L (3.5-5.1); SODIUM LEVEL 136 MMOL/L (136-145); TOTAL PROTEIN 6.9 G/DL (5.7-8.2)
[2024-05-07] MEDS: DAPAGLIFLOZIN PROPANEDIOL 10MG TABLET (FARXIGA) PO SCH (09:00)
[2024-05-07] MEDS: PANTOPRAZOLE 40MG VIAL IV SCH (09:11)
[2024-05-07] MEDS: ENOXAPARIN 40MG/0.4ML SYRINGE (J1650 PER 10MG) SC SCH (09:11)
[2024-05-07] MEDS: ASPIRIN 81MG ENTERIC TABLET PO SCH (18:50)
[2024-05-07] MEDS: FUROSEMIDE 20 MG TAB PO SCH (18:51)
[2024-05-07] MEDS: MONTELUKAST 10 MG TAB PO SCH (18:51)
[2024-05-07] MEDS: EZETIMIBE 10MG TABLET (ZETIA) PO SCH (18:53)
[2024-05-07] MEDS: ATORVASTATIN 20 MG TAB PO SCH (20:14)
[2024-05-08] VITALS (37 sets, daily range): BP systolic 107–122; BP diastolic 51–84; TEMP 96.6–98.4; O2SAT 83–96
[2024-05-08 04:47] LABS: BASO % 0.1 % (0.0-1.0); HEMOGLOBIN 11.9 g/dl (13.5-17.5); LYMPH # 0.8 10^3/uL (1.5-5.0); LYMPH % 5.3 % (24.0-44.0); MEAN CORPUSCULAR HGB CONC 32.2 g/dl (32.0-36.5); MEAN CORPUSCULAR VOLUME 93.2 fl (80.0-96.0); MONO # 0.7 10^3/uL (0.0-0.8); MONO % 4.7 % (2.0-8.0); NEUTROPHILS # 13.4 10^3/uL (1.5-8.5); NEUTROPHILS % 89.5 % (36.0-66.0); PLATELET COUNT, AUTOMATED 224 10^3/uL (150-450); RED BLOOD COUNT 3.97 10^6/uL (4.30-6.10)
[2024-05-08 05:08] LABS: ALBUMIN 2.4 G/DL (3.2-5.2); ALKALINE PHOSPHATASE 85 U/L (40-129); ALT/SGPT 24 U/L (7.0-40); AST/SGOT 22 U/L (<34); BILIRUBIN,TOTAL 0.2 MG/DL (0.3-1.2); BLOOD UREA NITROGEN 26 MG/DL (9-23); CALCIUM LEVEL 8.4 MG/DL (8.3-10.6); CARBON DIOXIDE LEVEL 30 MMOL/L (20-31); CHLORIDE LEVEL 102 MMOL/L (98-107); CREATININE FOR GFR 0.84 MG/DL (0.70-1.30); GLOMERULAR FILTRATION RATE > 60.0 (>49); GLUCOSE, FASTING 234 MG/DL (74-106); MAGNESIUM LEVEL 2.6 MG/DL (1.8-2.4); PHOSPHORUS LEVEL 2.7 MG/DL (2.4-5.1); POTASSIUM SERUM 5.4 MMOL/L (3.5-5.1); SODIUM LEVEL 139 MMOL/L (136-145); TOTAL PROTEIN 6.4 G/DL (5.7-8.2)
[2024-05-08] MEDS: CALCIUM GLUCONATE 1,000 MG in DEXTROSE 5% (D5W) MINI-BAG PLU 100 ML IV ONE (06:38)
[2024-05-08] MEDS: SOD POLYSTYRENE SULFONATE SUSP 15GM 60ML UD PO ONE (06:38)
[2024-05-08] MEDS: HumuLIN R (REGULAR) INSULIN (NovoLIN R) **100U/ML** PER UNIT IV STA (07:41)
[2024-05-08] MEDS: ALBUTEROL SULFATE 2.5MG/0.5ML INH NEB SOLN NEB ONE (08:08)
[2024-05-08] MEDS: predniSONE 20 MG TAB PO SCH (09:05)
[2024-05-08] MEDS: TAMSULOSIN 0.4 MG CAP PO SCH (10:23)
[2024-05-08] MEDS: IPRATROPIUM 0.5MG/ALBUTEROL 2.5MG INH SOL UD 3ML (DUONEB) NEB SCH (13:40)
[2024-05-08] MEDS: methylPREDNISolone 125MG 2ML VIAL IV ONE (14:18)
[2024-05-08] MEDS: MIDODRINE 5 MG TAB PO ONE (14:18)
[2024-05-08 16:03] LABS: POTASSIUM SERUM 4.5 MMOL/L (3.5-5.1)
[2024-05-08 16:11] LABS: CK-MB VALUE MASS 9.5 NG/ML (<3.6)
[2024-05-08 16:12] LABS: MB/CK RELATIVE INDEX 2.09 (< OR =4)
[2024-05-08 19:58] LABS: HEMOGLOBIN A1c 8.1 % (4.0-6.0)
[2024-05-08] MEDS: AZITHROMYCIN 250MG TABLET PO ONE (20:29)
[2024-05-09] VITALS (23 sets, daily range): BP systolic 109–129; BP diastolic 53–77; TEMP 97–97.8; O2SAT 86–97
[2024-05-09 06:37] LABS: BASO % 0.2 % (0.0-1.0); HEMATOCRIT 36.9 % (42.0-52.0); HEMOGLOBIN 11.5 g/dl (13.5-17.5); LYMPH # 1.2 10^3/uL (1.5-5.0); LYMPH % 10.8 % (24.0-44.0); MEAN CORPUSCULAR HGB CONC 31.2 g/dl (32.0-36.5); MEAN CORPUSCULAR VOLUME 92.9 fl (80.0-96.0); MONO # 0.8 10^3/uL (0.0-0.8); MONO % 7.3 % (2.0-8.0); NEUTROPHILS # 8.8 10^3/uL (1.5-8.5); NEUTROPHILS % 80.9 % (36.0-66.0); PLATELET COUNT, AUTOMATED 259 10^3/uL (150-450); RED BLOOD COUNT 3.97 10^6/uL (4.30-6.10); WHITE BLOOD COUNT 10.9 10^3/uL (4.0-10.0)
[2024-05-09 07:08] LABS: ALBUMIN 2.4 G/DL (3.2-5.2); ALKALINE PHOSPHATASE 85 U/L (40-129); ALT/SGPT 25 U/L (7.0-40); AST/SGOT 13 U/L (<34); BILIRUBIN,TOTAL 0.2 MG/DL (0.3-1.2); BLOOD UREA NITROGEN 28 MG/DL (9-23); CALCIUM LEVEL 8.1 MG/DL (8.3-10.6); CARBON DIOXIDE LEVEL 30 MMOL/L (20-31); CHLORIDE LEVEL 100 MMOL/L (98-107); GLOMERULAR FILTRATION RATE > 60.0 (>49); GLUCOSE, FASTING 289 MG/DL (74-106); MAGNESIUM LEVEL 2.4 MG/DL (1.8-2.4); PHOSPHORUS LEVEL 3.6 MG/DL (2.4-5.1); POTASSIUM SERUM 4.4 MMOL/L (3.5-5.1); SODIUM LEVEL 138 MMOL/L (136-145); TOTAL PROTEIN 6.3 G/DL (5.7-8.2)
[2024-05-09 11:17] LABS: PROCALCITONIN 0.28 ng/ml
[2024-05-10] VITALS (15 sets, daily range): BP systolic 124–143; BP diastolic 56–81; TEMP 96.5–98.4; O2SAT 86–96
[2024-05-10 07:58] LABS: BASO % 0.5 % (0.0-1.0); EOS % 0.1 % (0.0-3.0); HEMATOCRIT 39.8 % (42.0-52.0); HEMOGLOBIN 12.6 g/dl (13.5-17.5); LYMPH # 2.4 10^3/uL (1.5-5.0); LYMPH % 26.7 % (24.0-44.0); MEAN CORPUSCULAR HEMOGLOBIN 29.5 pg (27.0-33.0); MEAN CORPUSCULAR HGB CONC 31.7 g/dl (32.0-36.5); MEAN CORPUSCULAR VOLUME 93.2 fl (80.0-96.0); MONO # 0.8 10^3/uL (0.0-0.8); MONO % 8.8 % (2.0-8.0); NEUTROPHILS # 5.3 10^3/uL (1.5-8.5); PLATELET COUNT, AUTOMATED 256 10^3/uL (150-450); RED BLOOD COUNT 4.27 10^6/uL (4.30-6.10); WHITE BLOOD COUNT 8.8 10^3/uL (4.0-10.0)
[2024-05-10 08:26] LABS: BLOOD UREA NITROGEN 25 MG/DL (9-23); CALCIUM LEVEL 8.2 MG/DL (8.3-10.6); CARBON DIOXIDE LEVEL 31 MMOL/L (20-31); CHLORIDE LEVEL 100 MMOL/L (98-107); CREATININE FOR GFR 0.85 MG/DL (0.70-1.30); GLOMERULAR FILTRATION RATE > 60.0 (>49); GLUCOSE, FASTING 254 MG/DL (74-106); MAGNESIUM LEVEL 2.1 MG/DL (1.8-2.4); POTASSIUM SERUM 4.2 MMOL/L (3.5-5.1); SODIUM LEVEL 138 MMOL/L (136-145)
[2024-05-10] MEDS ORDERED: GLUCOSE 4 GM CHEW PO PRN (15:10)
[2024-05-10] MEDS ORDERED: GLUCAGON INJ 1MG VIAL SC PRN (15:10)
[2024-05-10] MEDS ORDERED: DEXTROSE 50% 50ML SYRINGE IV PRN (15:10)
[2024-05-10] MEDS: INSULIN LISPRO (NovoLOG) PER UNIT SC SCH ×2 (17:01→20:41)
[2024-05-11] VITALS (21 sets, daily range): BP systolic 113–144; BP diastolic 58–70; TEMP 97–98.1; O2SAT 88–98
[2024-05-11 06:04] LABS: HEMOGLOBIN 13.4 g/dl (13.5-17.5); MEAN CORPUSCULAR HEMOGLOBIN 29.4 pg (27.0-33.0); MEAN CORPUSCULAR HGB CONC 32.7 g/dl (32.0-36.5); MEAN CORPUSCULAR VOLUME 89.9 fl (80.0-96.0); PLATELET COUNT, AUTOMATED 295 10^3/uL (150-450); RED BLOOD COUNT 4.56 10^6/uL (4.30-6.10); WHITE BLOOD COUNT 13.3 10^3/uL (4.0-10.0)
[2024-05-11 06:12] LABS: BLOOD UREA NITROGEN 22 MG/DL (9-23); CALCIUM LEVEL 8.3 MG/DL (8.3-10.6); CARBON DIOXIDE LEVEL 32 MMOL/L (20-31); CHLORIDE LEVEL 98 MMOL/L (98-107); CREATININE FOR GFR 0.81 MG/DL (0.70-1.30); GLOMERULAR FILTRATION RATE > 60.0 (>49); GLUCOSE, FASTING 242 MG/DL (74-106); MAGNESIUM LEVEL 2.1 MG/DL (1.8-2.4); POTASSIUM SERUM 4.4 MMOL/L (3.5-5.1); SODIUM LEVEL 137 MMOL/L (136-145)
[2024-05-11 06:20] LABS: EOSINOPHILS 2 % (0-3); LYMPHOCYTES 21 % (16-44); METAMYELOCYTES 3 % (0-0); MONOCYTES 7 % (0-5); MYELOCYTES 1 % (0-0); NEUTROPHILS 66 % (28-66); PLATELET ESTIMATE NORMAL (NORMAL)
[2024-05-12] VITALS (18 sets, daily range): BP systolic 110–133; BP diastolic 53–63; TEMP 97–97.9; O2SAT 90–99
[2024-05-12 06:24] LABS: BASO % 0.2 % (0.0-1.0); EOS # 0.1 10^3/uL (0.0-0.5); EOS % 0.8 % (0.0-3.0); HEMOGLOBIN 14.2 g/dl (13.5-17.5); LYMPH # 3.9 10^3/uL (1.5-5.0); LYMPH % 24.3 % (24.0-44.0); MEAN CORPUSCULAR HEMOGLOBIN 29.3 pg (27.0-33.0); MEAN CORPUSCULAR HGB CONC 32.3 g/dl (32.0-36.5); MEAN CORPUSCULAR VOLUME 90.9 fl (80.0-96.0); MONO # 0.9 10^3/uL (0.0-0.8); MONO % 5.8 % (2.0-8.0); NEUTROPHILS # 9.5 10^3/uL (1.5-8.5); NEUTROPHILS % 59.9 % (36.0-66.0); PLATELET COUNT, AUTOMATED 314 10^3/uL (150-450); RED BLOOD COUNT 4.84 10^6/uL (4.30-6.10); WHITE BLOOD COUNT 15.9 10^3/uL (4.0-10.0)
[2024-05-12 06:34] LABS: BLOOD UREA NITROGEN 21 MG/DL (9-23); CALCIUM LEVEL 8.2 MG/DL (8.3-10.6); CARBON DIOXIDE LEVEL 32 MMOL/L (20-31); CHLORIDE LEVEL 98 MMOL/L (98-107); CREATININE FOR GFR 0.83 MG/DL (0.70-1.30); GLOMERULAR FILTRATION RATE > 60.0 (>49); GLUCOSE, FASTING 253 MG/DL (74-106); MAGNESIUM LEVEL 2.1 MG/DL (1.8-2.4); POTASSIUM SERUM 4.3 MMOL/L (3.5-5.1); SODIUM LEVEL 138 MMOL/L (136-145)
[2024-05-13 00:09] VITALS: BP 121/55; TEMP 98.5; O2SAT 97
[2024-05-13 04:05] VITALS: BP 128/60; TEMP 97.4; O2SAT 9
[2024-05-13 06:19] LABS: BASO # 0.1 10^3/uL (0.0-0.2); BASO % 0.8 % (0.0-1.0); EOS # 0.1 10^3/uL (0.0-0.5); EOS % 0.7 % (0.0-3.0); HEMATOCRIT 41.6 % (42.0-52.0); HEMOGLOBIN 13.6 g/dl (13.5-17.5); LYMPH % 19.9 % (24.0-44.0); MEAN CORPUSCULAR HEMOGLOBIN 29.6 pg (27.0-33.0); MEAN CORPUSCULAR HGB CONC 32.7 g/dl (32.0-36.5); MEAN CORPUSCULAR VOLUME 90.6 fl (80.0-96.0); MONO % 6.3 % (2.0-8.0); NEUTROPHILS # 9.9 10^3/uL (1.5-8.5); PLATELET COUNT, AUTOMATED 298 10^3/uL (150-450); RED BLOOD COUNT 4.59 10^6/uL (4.30-6.10); WHITE BLOOD COUNT 15.2 10^3/uL (4.0-10.0)
[2024-05-13 06:47] LABS: BLOOD UREA NITROGEN 25 MG/DL (9-23); CALCIUM LEVEL 8.1 MG/DL (8.3-10.6); CARBON DIOXIDE LEVEL 31 MMOL/L (20-31); CHLORIDE LEVEL 100 MMOL/L (98-107); GLOMERULAR FILTRATION RATE > 60.0 (>49); GLUCOSE, FASTING 280 MG/DL (74-106); MAGNESIUM LEVEL 2.1 MG/DL (1.8-2.4); POTASSIUM SERUM 4.4 MMOL/L (3.5-5.1); SODIUM LEVEL 138 MMOL/L (136-145)
[2024-05-13 08:00] VITALS: BP 129/59; TEMP 97.6; O2SAT 96
[2024-05-13 09:30] VITALS: BP 129/59
[2024-05-13] MEDS ORDERED: FLOM0.4C39 PO (11:47)
[2024-05-13 12:00] VITALS: BP 129/55; TEMP 97.7; O2SAT 94
== END 2024-05-13 14:35 | disposition home or self-care (01) | DRG 208 ==
LOC: EDBD 15:19 → M ED 15:19 → M ED INP 18:33 → M ICU 20:46 → M PCU 05-08 11:59
PROVIDERS: ADMIT Internal Medicine Pulmonary Disease; ATTEND Student in an Organized Health Care Education/Training Program
PROC: 5A1935Z Respiratory Ventilation, Less than 24 Consecutive Hours (ICD-10-PCS; principal; 2024-05-06)
DX: J96.22 Acute and chronic respiratory failure with hypercapnia (principal); I50.33 Acute on chronic diastolic (congestive) heart failure; J44.1 Chronic obstructive pulmonary disease with (acute) exacerbation; J96.21 Acute and chronic respiratory failure with hypoxia; I27.20 Pulmonary hypertension, unspecified; E11.9 Type 2 diabetes mellitus without complications; I11.0 Hypertensive heart disease with heart failure; Z68.36 Body mass index [BMI] 36.0-36.9, adult; Z93.0 Tracheostomy status; R33.9 Retention of urine, unspecified; E87.5 Hyperkalemia; J98.09 Other diseases of bronchus, not elsewhere classified; R19.7 Diarrhea, unspecified; B97.29 Other coronavirus as the cause of diseases classified elsewhere; Z87.891 Personal history of nicotine dependence; Z79.899 Other long term (current) drug therapy; Z79.82 Long term (current) use of aspirin

== ENCOUNTER → 2024-10-14 | Outpatient (REF) | payer MEDICARE, MEDICAID ==
[~2024-10-14] MED LIST changes: +ASPI-226 PO; +FARX1TAB3 PO; +LISI10TA22 PO; +METF10004 PO; +SEMA0.257 INJ; +TAMS-18 PO
[2024-10-14 16:56] LABS: CALCIUM LEVEL 9.1 MG/DL (8.3-10.6); CARBON DIOXIDE LEVEL 31 MMOL/L (20-31); CHLORIDE LEVEL 102 MMOL/L (98-107); CREATININE FOR GFR 0.84 MG/DL (0.70-1.30); GLOMERULAR FILTRATION RATE > 90.0 (>49); MAGNESIUM LEVEL 2.0 MG/DL (1.8-2.4); POTASSIUM SERUM 4.5 MMOL/L (3.5-5.1); SODIUM LEVEL 142 MMOL/L (136-145)
== END ==
LOC: M LAB REF 16:14
PROVIDERS: ATTEND Pediatrics
DX: I10 Essential (primary) hypertension (principal); E83.42 Hypomagnesemia

== ENCOUNTER → 2024-10-26 | Outpatient (CLI) | payer MEDICARE, MEDICAID | LOC: M RAD 16:21 | PROVIDERS: ATTEND Internal Medicine Pulmonary Disease | DX: R91.8 Other nonspecific abnormal finding of lung field (principal); J43.9 Emphysema, unspecified ==

== ENCOUNTER → 2024-12-01 | Outpatient (CLI) | payer MEDICARE, MEDICAID ==
[~2024-12-01] MED LIST changes: -EZET10TA21 PO; +EZET10TA57 PO
[2024-12-01 12:31] LABS: PLATELET COUNT, AUTOMATED 232 10^3/uL (150-450)
[2024-12-01 12:43] LABS: INR 0.94
== END ==
LOC: M LAB 12:02
PROVIDERS: ATTEND Internal Medicine Pulmonary Disease
DX: R91.1 Solitary pulmonary nodule (principal)

== ENCOUNTER → 2024-12-08 | Outpatient (CLI) | payer MEDICARE, MEDICAID ==
[~2024-12-08] MED LIST changes: +ACETAMINOPHEN 325 MG TAB PO PRN; +FLUTISP NARES; +HOME MED LIST COMPLETE! XX SCH; +SODI0.9N3 INH
[2024-12-08 08:32] VITALS: TEMP 96.6
[2024-12-08] MEDS: NS (Normal Saline) 0.9% 1,000 ML IV SCH (08:50)
[2024-12-08] MEDS: LIDOCAINE 1% MDV 20 ML VIAL SC ONE (09:30)
[2024-12-08] MEDS: MIDAZOLAM INJ 2 MG/2 ML VIAL IV PRN (10:48)
[2024-12-08 12:00] VITALS: BP 131/58; O2SAT 99
== END ==
LOC: M IRPRO 08:18
PROVIDERS: ATTEND Internal Medicine Pulmonary Disease
DX: R91.1 Solitary pulmonary nodule (principal); J95.811 Postprocedural pneumothorax
CPT/HCPCS: 32408; 88305; 99152; 99153; J2250; J3010

== ENCOUNTER → 2024-12-14 | Outpatient (REF) | payer MEDICARE, MEDICAID ==
[~2024-12-14] MED LIST changes: -ACETAMINOPHEN 325 MG TAB PO PRN; -HOME MED LIST COMPLETE! XX SCH
[2024-12-14 18:18] LABS: BASO # 0.1 10^3/uL (0.0-0.2); BASO % 0.7 % (0.0-1.0); EOS # 0.5 10^3/uL (0.0-0.5); EOS % 6.1 % (0.0-3.0); LYMPH # 2.1 10^3/uL (1.5-5.0); LYMPH % 27.5 % (24.0-44.0); MONO # 0.6 10^3/uL (0.0-0.8); MONO % 7.8 % (2.0-8.0); NEUTROPHILS # 4.4 10^3/uL (1.5-8.5); NEUTROPHILS % 57.6 % (36.0-66.0); PLATELET COUNT, AUTOMATED 244 10^3/uL (150-450)
[2024-12-14 18:34] LABS: ESTIMATED AVERAGE GLUCOSE 128.0 MG/DL (60-110)
[2024-12-14 18:47] LABS: ALT/SGPT 23 U/L (7.0-40); AST/SGOT 17 U/L (<34); CALCIUM LEVEL 9.0 MG/DL (8.3-10.6); CARBON DIOXIDE LEVEL 30 MMOL/L (20-31); CHLORIDE LEVEL 104 MMOL/L (98-107); CHOLESTEROL LEVEL 174 MG/DL (<200); CHOLESTEROL RISK RATIO 4.59 (<5); CREATININE FOR GFR 0.85 MG/DL (0.70-1.30); GLOMERULAR FILTRATION RATE > 90.0 (>49); LDL CHOLESTEROL 108.1 MG/DL (<100); NON-HDL-C 136.1 MG/DL; POTASSIUM SERUM 4.7 MMOL/L (3.5-5.1); SODIUM LEVEL 143 MMOL/L (136-145); TRIGLYCERIDES LEVEL 140 MG/DL (<150)
== END ==
LOC: M LAB REF 16:22
PROVIDERS: ATTEND Pediatrics
DX: E11.69 Type 2 diabetes mellitus with other specified complication (principal); E78.5 Hyperlipidemia, unspecified

== ENCOUNTER → 2024-12-14 | Outpatient (REF) | payer MEDICARE, MEDICAID ==
[2024-12-14 18:40] LABS: CREATININE, URINE 147.2 MG/DL; MALB URINE SIEMENS 9.0 MG/L; MAU/CREAT RATIO 6.1 MCG/MG (0.0-30.0)
== END ==
LOC: M LAB REF 16:21
PROVIDERS: ATTEND Pediatrics
DX: E11.69 Type 2 diabetes mellitus with other specified complication (principal); E78.5 Hyperlipidemia, unspecified